=== PATIENT | female | born 1995 | race Caucasian/White ===

== ENCOUNTER 2016-04-17 22:38 | Inpatient (IN) | payer MEDICAID ==
[~2016-04-17] VITALS: Ht 165.1 cm; Wt 80.5 kg
[~2016-04-17 22:38] MED LIST: CIPR500T4 PO; DOCU100C37 PO; FERR-74 PO; Flexeril PO; IBUP-1780 PO; NITR-65 PO; OXYC-465 PO; PREN-37 PO; PREN1TAB71 PO
--- OUTSIDE RECORDS SUMMARY | 2016-04-17 22:42 | XMS REPORT | Continuity of Care Document ---
Author Author [facility] Organization [facility] Address Unknown Phone Unavailable Care Team Providers Care Tunnel Kiln Firer Name Role Phone JAIMEE ARIAS MD PCP Insurance Providers Payer Name Policy Number Subscriber Name Relationship Self Pay Milagro Lou 18 Self / Same As Patient Advance Directives Directive Response Recorded Date/Time Advance Directives No 10/18/14 3:55pm Health Care Power of Esthetics Instructor No 10/18/14 3:55pm Organ Donor Yes 10/18/14 3:55pm Resuscitation Status Full Code 10/18/14 3:55pm Problems No known problems or medical conditions. Medications Medication Dose Route Sig Days/Qty Instructions Order Date Discontinued Date Status Vit/Fe Fumarate/Fa 1 Each PO DAILY 0 Qty 10/18/14 Active Social History Social History Problem Response Recorded Date/Time Recent Foreign Travel No 10/18/2014 3:45pm Smoking Status Never a Smoker 10/18/2014 3:47pm Query Response Start Date Stop Date Smoking Status Never a Smoker Hospital Discharge Instructions No hospital discharge instructions. Plan of Care No plan of care. Functional Status No functional status results. Allergies, Adverse Reactions, Alerts Allergen Type Severity Reaction Status Last Updated penicillin Allergy Unknown Active 10/18/14 Immunizations No immunization records. Vital Signs Acute Vital Signs Vital Response Date/Time Pain Pain Intensity 3 Height (Feet) 5 feet Height (Inches) 5.00 inches Height (Calculated Centimeters) 165.359471 cm Weight (Pounds) 164 pounds Weight (Calculated Grams) 52487.149 gm Weight (Calculated Kilograms) 74.857031 kilograms Calculated BMI 27.29 Results Laboratory Results Test Name Result Units Flags Reference Collection Date/Time Result Date/ Time Comments Urine Color YELLOW 10/18/2014 3:15pm 10/18/2014 5:33pm Urine Clarity SLIGHTLY CLOUDY 10/18/2014 3:15pm 10/18/2014 5:33pm Urine pH 8 5-9 10/18/2014 3:15pm 10/18/2014 5:33pm Urine Specific [place] 1.015 * 1.016-1.022 10/18/2014 3:15pm 2014 5:33pm Urine Protein NEGATIVE NEGATIVE 10/18/2014 3:15pm 10/18/2014 5:33pm Urine Glucose (UA) NEGATIVE NEGATIVE 10/18/2014 3:15pm 10/18/2014 5: 33pm Urine RBC (Auto) NEGATIVE NEGATIVE 10/18/2014 3:15pm 10/18/2014 5: 33pm Urine Ketones NEGATIVE NEGATIVE 10/18/2014 3:15pm 10/18/2014 5:33pm Urine Nitrite NEGATIVE NEGATIVE 10/18/2014 3:15pm 10/18/2014 5:33pm Urine Bilirubin NEGATIVE NEGATIVE 10/18/2014 3:15pm 10/18/2014 5: 33pm Urine Urobilinogen NORMAL MG/DL NORMAL 10/18/2014 3:15pm 10/18/2014 5: 33pm Urine Leukocyte Esterase 1+ * NEGATIVE 10/18/2014 3:15pm 10/18/2014 5: 33pm Urine RBC NONE /HPF 10/18/2014 3:15pm 10/18/2014 5:33pm Urine WBC 2-5 /HPF 10/18/2014 3:15pm 10/18/2014 5:33pm Urine Bacteria MODERATE /HPF * 10/18/2014 3:15pm 10/18/2014 5:33pm Urine Squamous Epithelial Cells 10-25 /HPF * 10/18/2014 3:15pm 2014 5:33pm Urine Crystals NONE /LPF 10/18/2014 3:15pm 10/18/2014 5:33pm Urine Casts NONE /LPF 10/18/2014 3:15pm 10/18/2014 5:33pm Urine Mucus SMALL /LPF * 10/18/2014 3:15pm 10/18/2014 5:33pm Urine Culture Indicated NO 10/18/2014 3:15pm 10/18/2014 5:33pm A CULTURE WAS ALREADY ORDERED FOR THIS SPECIMEN Procedures No known history of procedures. Encounters Encounter Location Date/Time Departed Clinic Via [facility] 10/18/14 3:08pm Registered Clinic Via [facility] 10/10/14 10:11am
[2016-04-17 23:00] VITALS: BP 108/67
[2016-04-18] VITALS (10 sets, daily range): BP systolic 88–117; BP diastolic 50–70
[2016-04-18] MEDS ORDERED: D5 LR IV SOLUTION 1,000 ML IV ONE ×2 (06:16→11:00)
[2016-04-18] MEDS ORDERED: BUTORPHANOL INJ 2 MG/ML (STADOL) VIAL ONE (06:16)
[2016-04-18] MEDS: D5 LR IV SOLUTION 1,000 ML IV SCH ×2 (06:31→19:00)
[2016-04-18] MEDS ORDERED: BUTORPHANOL INJ 2 MG/ML (STADOL) VIAL IV ONE (06:45)
[2016-04-18] MEDS ORDERED: FLU TRIvalent (5 YOA+) 2016-17 (AFLURIA) 0.5 ML IM ONE (07:00)
[2016-04-18 07:38] LABS: BASOPHILS % (AUTO) 0 % (0-10); EOSINOPHILS % (AUTO) 0 % (0-10); LYMPHOCYTES % (AUTO) 21 % (12-44); MEAN CORPUSCULAR HEMOGLOBIN 27 PG (25-34); MEAN CORPUSCULAR HGB CONC 33 G/DL (32-36); MEAN CORPUSCULAR VOLUME 81 FL (80-99); MEAN PLATELET VOLUME 10.8 FL (7.4-10.4); MONOCYTES # (AUTO) 0.5 X 10^3 (0.0-1.0); MONOCYTES % (AUTO) 5 % (0-12); NEUTROPHILS # (AUTO) 7.3 X 10^3 (1.8-7.8); NEUTROPHILS % (AUTO) 74 % (42-75); PLATELET COUNT 226 10^3/uL (130-400); RED BLOOD COUNT 3.44 10^6/uL (4.35-5.85); RED CELL DISTRIBUTION WIDTH 14.3 % (10.0-14.5); WHITE BLOOD COUNT 9.9 10^3/uL (4.3-11.0)
--- NOTE | 2016-04-18 10:06 | Diagnostic Imaging Report ---
CLINICAL INDICATION: Patient with leaking fluid. COMPARISON: None TECHNIQUE: Real time ultrasound is performed FINDINGS: GESTATIONAL AGE: 37 weeks 6 days. TODD: 05/03/2016. Single live intrauterine is seen. PRESENTATION: Cephalic PLACENTA: Posterior with no evidence of previa. BIOPHYSICAL PROFILE SCORE: movement: 2/2 tone: 2/ 2 breathin/ 2 Amnionic fluid: 2/ 2 Total biophysical Profile score:6/ 8 HEART RATE: 114 bpm AMNIONIC FLUID INDEX: 15.87 cm IMPRESSION: Single live intrauterine with abnormal biophysical profile score of 6/8 due to breathing. The ION is 15.87 and heart rate of 114 beats per minute. The nurse taking care of the patient was made aware of this report and discussed with diagnostic radiologic technologist at time of this exam. Dictated by: Dictated on workstation # [id number]
[2016-04-18] MEDS ORDERED: LACTATED RINGERS 1,000 ML IV PRN (10:14)
[2016-04-18] MEDS ORDERED: CATHETER FLUSH 10 ML SYR IV PRN (10:15)
[2016-04-18] MEDS ORDERED: CITRIC ACID/SOB CIT (BICITRA) 30 ML UDC PO NR (10:15)
[2016-04-18] MEDS ORDERED: METOCLOPRAMIDE INJ 10 MG/2 ML (REGLAN) IV NR (10:15)
[2016-04-18] MEDS ORDERED: FAMOTIDINE 20MG/2ML IV (PEPCID) IV NR (10:15)
[2016-04-18] MEDS ORDERED: FAMOTIDINE 20MG/2ML IV (PEPCID) ONE (10:18)
[2016-04-18] MEDS ORDERED: CITRIC ACID/SOB CIT (BICITRA) 30 ML UDC ONE (10:18)
[2016-04-18] MEDS: LACTATED RINGERS 1,000 ML IV PRN ×2 (10:26→11:08)
[2016-04-18] MEDS ORDERED: metroNIDAZOLE 500MG/100ML IVPB 100 ML ONE (10:32)
[2016-04-18] MEDS ORDERED: fentaNYL INJECTION 100 MCG/2 ML AMP ONE (10:34)
[2016-04-18] MEDS ORDERED: OXYTOCIN/NORMAL SALINE 1,000 ML IV ONE (10:34)
[2016-04-18] MEDS ORDERED: ceFAZolin 2 GM/50 ML NS 50 ML IV NR (10:45)
[2016-04-18] MEDS ORDERED: metroNIDAZOLE 500MG/100ML IVPB 100 ML IV NR (10:45)
[2016-04-18] MEDS ORDERED: ceFAZolin INJECTION 2,000 MG in NORMAL SALINE (BAXTER MINI) 50 ML IV ONE (11:00)
[2016-04-18] MEDS ORDERED: TETANUS,DIPTH,PERTUSS P/F (BOOSTRIX) 0.5 ML VIAL IM ONE (11:00)
[2016-04-18] MEDS ORDERED: MEASLES,MUMPS,RUBELLA 1 EA INJ SC ONE (11:00)
[2016-04-18] MEDS ORDERED: PROMETHAZINE INJ 25 MG/ML (PHENERGAN) AMP IM PRN (11:00)
[2016-04-18] MEDS ORDERED: MEPERIDINE (DEMEROL) INJ 100 MG/ML IM PRN (11:00)
[2016-04-18] MEDS ORDERED: metroNIDAZOLE 500MG/100ML IVPB 100 ML IV ONE (11:00)
--- NOTE | 2016-04-18 11:09 | History & Physical ---
History and Physical this patient is a 19-year-old white female with a previous . She was admitted last evening with complaint of pain and pressure. She also felt like she was leaking amniotic fluid. Since presentation she had begun kristopher. That one episode of babies heart rate dropping down into the 90s for later 10 minutes. That resolved. Has had progressively increasing pain that she rates as 9 out of 10. Her contractions have persisted in spite of sedation and hydration. Clinically there is concern for placental abruption with her presentation. Her previous delivery was at 37 weeks as well. Plan now is to proceed with delivery. She did have a GBS culture done at 35 weeks gestation that was negative. She denies bleeding but still feels like she is leaking fluid. Physical profile was performed with a value of 6 out of 8 with no breathing movements. ION was 16 Allergies are to penicillin which causes a rash Indications are vitamins Past medical history, past surgical history, obstetric history, family history, social histories are per the antepartum record HEENT exam is normal Neck is supple no lymphadenopathy no thyromegaly Heart has a regular rhythm with no murmur Chest is clear auscultation bilaterally Abdomen is gravid soft and minimally tender. Extreme show clubbing cyanosis. There is no Homans sign. Pelvic exam is deferred Laboratory Tests Test 04/18/16 07:24 Range/Units Basophils # (Auto) 0.0 0.0-0.1 10^3/uL Basophils (%) (Auto) 0 0-10 % Eosinophils # (Auto) 0.0 0.0-0.3 10^3/uL Eosinophils (%) (Auto) 0 0-10 % Hematocrit 28 L 35-52 % Hemoglobin 9.2 L 11.5-16.0 G/DL Lymphocytes # (Auto) 2.0 1.0-4.0 X 10^3 Lymphocytes (%) (Auto) 21 12-44 % Mean Corpuscular Hemoglobin 27 25-34 PG Mean Corpuscular Hemoglobin Concent 33 32-36 G/DL Mean Corpuscular Volume 81 80-99 FL Mean Platelet Volume 10.8 H 7.4-10.4 FL Monocytes # (Auto) 0.5 0.0-1.0 X 10^3 Monocytes (%) (Auto) 5 0-12 % Neutrophils # (Auto) 7.3 1.8-7.8 X 10^3 Neutrophils (%) (Auto) 74 42-75 % Platelet Count 226 130-400 10^3/uL Red Blood Count 3.44 L 4.35-5.85 10^6/uL Red Cell Distribution Width 14.3 10.0-14.5 % White Blood Count 9.9 4.3-11.0 10^3/uL signs are stable patient is afebrile Vital Signs Date Time Temp Pulse Resp B/P Pulse Ox O2 Delivery O2 Flow Rate FiO2 04/18/16 07:15 97.4 62 18 99/57 Room Air 04/18/16 04:00 97.8 85 18 111/70 Room Air 04/17/16 23:00 98.7 85 18 108/67 Room Air assessment and plan 37 week plus gestation with possible placental abruption evidenced by fairly severe abdominal pelvic pain has progressed as her contractions have developed and progresses well. Patient may very well be leaking amniotic fluid although evaluation was negative. Patient had a previous where proceeding with a repeat with previous in early labor with suspicion for placental abruption Allergies and Home Medications Allergies Coded Allergies: penicillin (Unverified Allergy, Unknown, 10/18/14) Home Medications Nitrofurantoin Monohyd/M-Cryst 100 Mg Capsule 1 TAB PO DAILY (Reported) Vit/Iron Fumarate/FA 1 Each Tablet 1 EACH PO DAILY (Reported) YUNIEL CABRERA MD Apr 18, 2016 11:09 am
[2016-04-18] MEDS: OXYTOCIN/NORMAL SALINE 500 ML IV SCH ×3 (11:30→12:49)
[2016-04-18] MEDS ORDERED: ONDANSETRON 4 MG/2 ML (SDV) Z0FRAN ONE (11:47)
[2016-04-18] MEDS: KETOROLAC 30 MG/ML VIAL IVP SCH ×3 (12:45→23:58)
--- NOTE | 2016-04-18 12:59 | OPERATIVE REPORT ---
PROCEDURE PHYSICIAN: YUNIEL CABRERA DATE OF PROCEDURE: 04/18/2016 DATE OF DICTATION: 04/18/2016 PREOPERATIVE DIAGNOSIS: Term at 37+ weeks gestation with previous and with concern for placental abruption. POSTOPERATIVE DIAGNOSIS: Term at 37+ weeks gestation with previous and with concern for placental abruption, placental abruption and with uterine scar separation. OPERATIVE PROCEDURE: Repeat low transverse delivery of a viable female with Apgars of 9 and 9 at one and five minutes respectfully. Weight was 6 pounds 5 ounces. time was 1128. Arterial Cord blood pH was 7.33. OPERATIVE DESCRIPTION: With the patient in supine position, under satisfactory spinal anesthesia, she was prepped and draped usual fashion for abdominal surgery. Gale cath was placed in the urinary bladder. A repeat Pfannenstiel incision was made through the skin with scalpel by removing the patient's rather large previous Pfannenstiel incisional scar. The abdomen was then entered in the usual manner. Bladder retractor placed into position, clean scalpel used to make 4 cm hysterotomy incision. That was extended by blunt dissection as well. Andrews forceps were applied to facilitate delivery of a vigorous viable female infant. The infant had Apgars of 9 and 9 at one and five minutes respectfully. Weight was 6 pounds 5 ounces. time was 1128. The infant was bulb suctioned on delivery of the head and again on completion of delivery. The cord was doubly clamped and cut and the infant passed to nurse Campoverde, the pediatric nurse in attendance for delivery. The placenta delivered spontaneously quite promptly with fairly significant large clot retroplacental consistent with placental abruption. On opening the uterus it was noted that there was a 2 to 2.5 cm separation in the right margin of the uterine scar that had dehisced. There was evidence that this was new as there was blood was some fresh clot in that area as well. The cord bloods were obtained. Cord arterial pH was 7.33. The placenta again delivered spontaneously promptly. It was sent to pathology for permanent section. The uterus was exteriorized, interior wiped clean with a wet laparotomy sponge. Uterine incision then closed with running locked suture of 2-0 Vicryl. Good reapproximation was achieved and obliteration of the dehisced area was achieved as well. The uterus was returned to the abdominal cavity. All blood clot and debris removed from the abdominal cavity. With sponge and needle counts correct and hemostasis assured, the anterior parietal peritoneum was closed with running suture of 2-0 Vicryl. The rectus muscles were closed with that suture as well. The rectus fascia was closed with 2-0 Vicryl. Subcutaneous tissue with 2-0 Vicryl and skin was stapled. Sponge and needle counts were correct on completion of delivery. Estimated blood loss was around 600 mL. The patient tolerated the procedure well, and was transferred to recovery room in stable condition. The had been taken stable to the full term nursery under the care of nurse Campoverde. Job ID: [id number] Dictated Date: 04/18/2016 11:46:18 Photogrammetry Airplane Pilot Date: 04/18/2016 12:52:48 / coreen
[2016-04-18] MEDS: oxyCODONE/APAP 10/325MG (PERCOCET 10) TABLET PO PRN ×2 (16:36→21:14)
[2016-04-18] MEDS: DOCUSATE SODIUM 100 MG (COLACE) CAP PO SCH (21:14)
[2016-04-19] MEDS: D5 LR IV SOLUTION 1,000 ML IV SCH (00:17)
[2016-04-19 00:22] VITALS: BP 98/64
[2016-04-19 04:30] VITALS: BP 95/60
[2016-04-19] MEDS: KETOROLAC 30 MG/ML VIAL IVP SCH (06:10)
[2016-04-19] MEDS ORDERED: IBUPROFEN 800 MG (MOTRIN) TAB PO ONE (06:14)
[2016-04-19] MEDS: oxyCODONE/APAP 10/325MG (PERCOCET 10) TABLET PO PRN ×2 (06:18→20:12)
[2016-04-19] MEDS: IBUPROFEN 800 MG (MOTRIN) TAB PO SCH ×3 (06:19→18:30)
--- NOTE | 2016-04-19 08:04 | Progress Note-Standard ---
Standard Progress Note Progress Notes/Assess & Plan Progress/Assessment & Plan patient is without complaint. She is ambulating, voiding, tolerating by mouth well, has good pain control. Patient denies chest pain, denies shortness of breath, denies nausea vomiting, denies headache. Vital Signs Date Time Temp Pulse Resp B/P Pulse Ox O2 Delivery O2 Flow Rate FiO2 04/19/16 04:30 97.6 62 18 95/60 99 04/19/16 00:22 97.8 69 18 98/64 97 Room Air 04/18/16 20:00 97.2 68 18 117/63 99 Room Air 04/18/16 18:59 97 04/18/16 15:27 97.6 76 18 100/62 98 Room Air 04/18/16 10:55 97.3 63 18 88/51 Room Air 04/18/16 10:25 85 18 108/66 99 Room Air 04/18/16 09:55 66 18 89/50 97 Room Air 04/18/16 09:40 69 18 97/53 99 Room Air 04/18/16 09:30 67 18 97/53 Room Air 04/18/16 08:55 74 18 108/67 Room Air I & O 04/19/16 07:00 Intake Total 4672 ml Output Total 1750 ml Balance 2922 ml vital signs are stable. Patient afebrile. Abdomen is benign. Extreme show clubbing cyanosis. There is no Homans sign. Assessment and plan day number 1 status post repeat doing well. Plan is for routine convalescence care today and consider for discharge home tomorrow YUNIEL CABRERA MD Apr 19, 2016 8:04 am
[2016-04-19] MEDS ORDERED: DOCU100C37 PO (08:07)
[2016-04-19] MEDS ORDERED: OXYC-465 PO (08:07)
[2016-04-19] MEDS ORDERED: IBUP-1780 PO (08:07)
--- NOTE | 2016-04-19 08:09 | Discharge Instructions ---
Discharge Instructions Discharge Medications New, Converted or Re-Newed RX: RX on Chart Patient Instructions Patient Instructions: as directed Return to The Hospital For: as directed Activity & Diet Discharge Diet: No Restrictions Activity as Tolerated: No Orders-Post D/C & Referrals Follow Up Appt: RTC 1 week for incision check. Call to make follow up appt. for patient in 4 weeks. Wound Care: Remove shar, apply benzoin and steri strips. Activity Per routine post instructions. Diet as tolerated Patient may shower or tub bathe as desired. Continue home meds YUNIEL CABRERA MD Apr 19, 2016 8:09 am
[2016-04-19] MEDS: DOCUSATE SODIUM 100 MG (COLACE) CAP PO SCH ×2 (08:30→20:12)
[2016-04-19 09:51] VITALS: BP 96/67
[2016-04-19 12:00] VITALS: BP 100/63
--- NOTE | 2016-04-19 12:39 | Anesthesia-Regional Post-Op ---
Regional Patient Condition Mental Status: Alert, Oriented x3 Circulation: Same as Pre-Op Headache: Absent Sensation: Full Recovery Motor Block: Absent Post Op Complications Complications None Follow Up Care/Instructions Patient Instructions None needed. Anesthesia/Patient Condition Patient is doing well, no complaints, stable vital signs, no apparent adverse anesthesia problems. No complications reported per nursing. ARIK ALMONTE CRNA Apr 19, 2016 12:39
[2016-04-19 18:30] VITALS: BP 105/71
[2016-04-19 21:00] VITALS: BP 107/72
[2016-04-19] MEDS ORDERED: CHLORASEPTIC LOZENGE MM PRN (22:00)
[2016-04-20] MEDS: D5 LR IV SOLUTION 1,000 ML IV SCH ×2 (05:19→06:45)
[2016-04-20] MEDS: oxyCODONE/APAP 10/325MG (PERCOCET 10) TABLET PO PRN (06:57)
[2016-04-20] MEDS: IBUPROFEN 800 MG (MOTRIN) TAB PO SCH (06:57)
--- NOTE | 2016-04-20 07:34 | Progress Note-Standard ---
Standard Progress Note Progress Notes/Assess & Plan Progress/Assessment & Plan patient is without complaint. She is ambulating, voiding, tolerating by mouth well, has good pain control. Patient denies chest pain, denies shortness of breath, denies nausea vomiting, denies headache. Vital Signs Date Time Temp Pulse Resp B/P Pulse Ox O2 Delivery O2 Flow Rate FiO2 04/19/16 04:30 97.6 62 18 95/60 99 04/19/16 00:22 97.8 69 18 98/64 97 Room Air 04/18/16 20:00 97.2 68 18 117/63 99 Room Air 04/18/16 18:59 97 04/18/16 15:27 97.6 76 18 100/62 98 Room Air 04/18/16 10:55 97.3 63 18 88/51 Room Air 04/18/16 10:25 85 18 108/66 99 Room Air 04/18/16 09:55 66 18 89/50 97 Room Air 04/18/16 09:40 69 18 97/53 99 Room Air 04/18/16 09:30 67 18 97/53 Room Air 04/18/16 08:55 74 18 108/67 Room Air I & O 04/19/16 07:00 Intake Total 4672 ml Output Total 1750 ml Balance 2922 ml vital signs are stable. Patient afebrile. Abdomen is benign. Extreme show clubbing cyanosis. There is no Homans sign. Assessment and plan day number 1 status post repeat doing well. Plan is for routine convalescence care today and consider for discharge home tomorrow April 20, 2016 Patient is without complaint. She is ambulating, voiding, tolerating by mouth well, has good pain control, and is requesting discharge home Vital Signs Date Time Temp Pulse Resp B/P Pulse Ox O2 Delivery O2 Flow Rate FiO2 04/19/16 21:00 98.2 84 18 107/72 98 Room Air 04/19/16 18:30 97.4 66 18 105/71 100 Room Air 04/19/16 12:00 97.4 58 18 100/63 99 Room Air 04/19/16 09:51 98.4 82 18 96/67 99 I & O 04/20/16 07:00 Intake Total 3240 ml Output Total 3300 ml Balance -60 ml vital signs are stable. Patient afebrile. Abdomen is benign. Incision is clean dry and intact. Extremities show no clubbing cyanosis. There is no Homans sign. There is some pretibial pitting edema that is normal. Assessment and plan postoperative day number 2 status post repeat doing well. Plan is for discharge home with follow-up in clinic. Final Diagnosis 37 week repeat YUNIEL CABRERA MD Apr 20, 2016 7:33 am
[2016-04-20 08:30] VITALS: BP 96/64
[2016-04-20] MEDS: DOCUSATE SODIUM 100 MG (COLACE) CAP PO SCH (08:49)
[2016-04-20 11:05] VITALS: BP 96/64
--- OUTSIDE RECORDS SUMMARY | 2016-04-25 12:59 | XMS REPORT | Continuity of Care Document ---
Author Author [facility] Organization [facility] Address Unknown Phone Unavailable Care Team Providers Care Nail Specialist Name Role Phone JAIMEE ARIAS MD PCP Insurance Providers Payer Name Policy Number Subscriber Name Relationship Self Pay Milagro Lou 18 Self / Same As Patient Advance Directives Directive Response Recorded Date/Time Advance Directives No 10/18/14 3:55pm Health Care Power of Tab Machine Operator No 10/18/14 3:55pm Organ Donor Yes 10/18/14 [...] Height (Inches) 5.00 inches Height (Calculated Centimeters) 165.508223 cm Weight (Pounds) 164 pounds Weight (Calculated Grams) 65049.149 gm Weight (Calculated Kilograms) 74.918911 kilograms Calculated BMI 27.29 Results Laboratory Results Test Name Result Units Flags Reference Collection Date/Time Result Date/ Time Comments Urine Color YELLOW 10/18/2014 3:15pm 10/18/2014 5:33pm Urine Clarity SLIGHTLY CLOUDY 10/18/2014 3:15pm 10/18/2014 5:33pm Urine pH 8 5-9 10/18/2014 3:15pm 10/18/2014 5:33pm Urine Specific [place] 1.015 * 1.016-1.022 10/18/2014 3:15pm 2014 5:33pm [...] Encounters Encounter Location Date/Time Departed Clinic Via [facility] 10/18/14 3:08pm Registered Clinic Via [facility] 10/10/14 10:11am
== END 2016-04-20 11:25 | disposition home or self-care (01) | DRG 766 ==
LOC: LDRP 22:38 → WSo 22:38 → LDRP 04-18 → WSo 04-18 → UNDOADMOB 04-18 04:45 → LDRP 04-18 04:45 → OBSVTOIN 04-18 10:31 → INTOOBSV 04-18 10:31 → LDRP 04-18 14:02 → UNDODISIN 04-20 11:25 → EDSTATUS 04-25 12:54
PROVIDERS: ADMIT Obstetrics & Gynecology; ATTEND Obstetrics & Gynecology
PROC: 10D00Z1 Extraction of Products of Conception, Low, Open Approach (ICD-10-PCS; principal; 2016-04-18 11:08)
DX: O34.211 Maternal care for low transverse scar from previous cesarean delivery (principal); Z3A.37 37 weeks gestation of pregnancy; Z37.0 Single live birth
CPT/HCPCS: 36415; 76819; 85025; 86850; 86900; 86901; 87081; 88307; 94664; 99212

== ENCOUNTER 2016-05-17 09:56 | Emergency (ER) | payer MEDICAID ==
[~2016-05-17] VITALS: Ht 165.1 cm; Wt 74.6 kg
--- OUTSIDE RECORDS SUMMARY | 2016-05-17 10:03 | XMS REPORT | Continuity of Care Document ---
Author Author [facility] Organization [facility] Address Unknown Phone Unavailable Care Team Providers Care Checker In Name Role Phone JAIMEE ARIAS MD PCP Insurance Providers Payer Name Policy Number Subscriber Name Relationship Self Pay Milagro Lou 18 Self / Same As Patient Advance Directives Directive Response Recorded Date/Time Advance Directives No 10/18/14 3:55pm Health Care Power of Auto Machinist No 10/18/14 3:55pm Organ Donor Yes 10/18/14 [...] Height (Inches) 5.00 inches Height (Calculated Centimeters) 165.026723 cm Weight (Pounds) 164 pounds Weight (Calculated Grams) 16131.149 gm Weight (Calculated Kilograms) 74.639961 kilograms Calculated BMI 27.29 Results Laboratory Results Test Name Result Units Flags Reference Collection Date/Time Result Date/ Time Comments Urine Color YELLOW 10/18/2014 3:15pm 10/18/2014 5:33pm Urine Clarity SLIGHTLY CLOUDY 10/18/2014 3:15pm 10/18/2014 5:33pm Urine pH 8 5-9 10/18/2014 3:15pm 10/18/2014 5:33pm Urine Specific [place] 1.015 * 1.016-1.022 10/18/2014 3:15pm 2014 5:33pm [...] Encounters Encounter Location Date/Time Departed Clinic Via [facility] 10/18/14 3:08pm Registered Clinic Via [facility] 10/10/14 10:11am
--- NOTE | 2016-05-17 10:42 | ED General ---
General Chief Complaint: General Problems/Pain Stated Complaint: FLU/UTI SYMPTOMS SYNCOPAL EPISODE Source of Information: Patient Exam Limitations: No Limitations History of Present Illness Time Seen by Provider: 10:41 Initial Comments To ER with reports of sudden onset UTI symptoms. This began yesterday with frequent urination, low back pain. She also has a headache and nausea. She reports that she nearly passed out this morning while making a bottle for her infant she felt lightheaded so she went towards the couch and fell down on the couch. She denies any chest pain, shortness of breath or palpitations. Timing/Duration: 12-24 Hours Severity: Moderate Associated Systoms: No Chest Pain, No Cough, No Fever/Chills, Headaches Nausea /Vomiting Allergies and Home Medications Allergies Coded Allergies: penicillin (Unverified Allergy, Unknown, 10/18/14) Home Medications Docusate Sodium 100 Mg Capsule #60 100 MG PO BID Prescribed by: YUNIEL MICHEL on 04/19/16 0807 Ibuprofen 800 Mg Tablet #60 800 MG PO Q6H Prescribed by: YUNIEL MICHEL on 04/19/16 0807 Nitrofurantoin Monohyd/M-Cryst 100 Mg Capsule 1 TAB PO DAILY (Reported) Ondansetron 8 Mg Tab.rapdis #10 8 MG PO Q6H PRN PRN NAUSEA/VOMITING Prescribed by: SE ZURITA on 05/17/16 1103 Oxycodone HCl/Acetaminophen 1 Each Tablet #60 1-2 TAB PO Q4H PRN PRN PAIN Prescribed by: YUNIEL MICHEL on 04/19/16 0807 Vit/Iron Fumarate/FA 1 Each Tablet 1 EACH PO DAILY (Reported) Sulfamethoxazole/Trimethoprim 1 Each Tablet #10 1 EACH PO BID Prescribed by: SE ZURITA on 05/17/16 1103 Constitutional: see HPI EENTM: see HPI Respiratory: no symptoms reported Cardiovascular: no symptoms reported Genitourinary: see HPI dysuria frequency Musculoskeletal: see HPI back pain Skin: no symptoms reported Psychiatric/Neurological: No Symptoms Reported Hematologic/Lymphatic: No Symptoms Reported Immunological/Allergic: no symptoms reported Past Axracgu-Tbfeaa-Mbbsuu Hx Patient Social History Alcohol Use: Denies Use Recreational Drug Use: No Smoking Status: Never a Smoker 2nd Hand Smoke Exposure: No Recent Foreign Travel: No Contact w/Someone Who Travel: No Recent Hopitalizations: Yes (CHILDBIRTH) Immunizations Up To Date Tetanus Booster (TDap): Unknown PED Vaccines UTD: Yes Seasonal Allergies Seasonal Allergies: Yes Surgeries HX Surgeries: Yes Surgeries: Section, Tubal Ligation Respiratory Hx Respiratory Disorders: No Cardiovascular Hx Cardiac Disorders: Yes Neurological Hx Neurological Disorders: No Reproductive System Hx Reproductive Disorders: No Genitourinary Hx Genitourinary Disorders: Yes (UROSEPSIS) Genitourinary Disorders: Kidney Infection, Bladder Infection, UTI-Chronic Gastrointestinal Hx Gastrointestinal Disorders: No Musculoskeletal Hx Musculoskeletal Disorders: No Endocrine Hx Endocrine Disorders: No HEENT HX ENT Disorders: No Cancer Hx Cancer: No Psychosocial Hx Psychiatric Problems: No Integumentary HX Skin/Integumentary Disorder: No Blood Transfusions Hx Blood Disorders: No Adverse Reaction to a Blood Tr: No Family Medical History Family Medial History: FH: blindness 19 MOTHER Hypertension 19 FATHER G8 SISTER Physical Exam Vital Signs Vital Sign - Last 12Hours 05/17/16 10:22 Temp 98.6 Pulse 92 Resp 18 B/P 127/72 Pulse Ox 98 O2 Delivery Room Air Capillary Refill : General Appearance: No Apparent Distress WD/WN Eyes: Bilateral Eye EOMI, Bilateral Eye Normal Inspection, Bilateral Eye PERRL HEENT: PERRL/EOMI TMs Normal Neck: Full Range of Motion Normal Inspection Respiratory: No Accessory Muscle Use No Respiratory Distress Cardiovascular: Regular Rate, Rhythm Normal Peripheral Pulses Gastrointestinal: Normal Bowel Sounds Non Tender Soft Extremity: Normal Capillary Refill Neurologic/Psychiatric: Alert Oriented x3 No Motor/Sensory Deficits Skin: Normal Color Warm/Dry Progress/Results/Core Measures Results/Orders Lab Results Laboratory Tests Test 05/17/16 10:42 05/17/16 10:46 Range/Units Urine Bacteria TRACE /HPF Urine Bilirubin NEGATIVE NEGATIVE Urine Casts NONE /LPF Urine Clarity SLIGHTLY CLOUDY Urine Color YELLOW Urine Crystals NONE /LPF Urine Culture Indicated NO Urine Glucose (UA) NEGATIVE NEGATIVE Urine Ketones NEGATIVE NEGATIVE Urine Leukocyte Esterase 2+ H NEGATIVE Urine Mucus LARGE H /LPF Urine Nitrite NEGATIVE NEGATIVE Urine Protein 1+ H NEGATIVE Urine RBC NONE /HPF Urine RBC (Auto) NEGATIVE NEGATIVE Urine Specific [place] 1.015 L 1.016-1.022 Urine Squamous Epithelial Cells >50 H /HPF Urine Urobilinogen 1 NORMAL MG/DL Urine WBC 5-10 H /HPF Urine pH 6 5-9 Alanine Aminotransferase (ALT/SGPT) 8 0-55 U/L Albumin 4.2 3.2-4.5 G/DL Alkaline Phosphatase 82 40-136 U/L Anion Gap 11 5-14 MMOL/L Aspartate Amino Transf (AST/SGOT) 10 5-34 U/L BUN/Creatinine Ratio 10 Basophils # (Auto) 0.0 0.0-0.1 10^3/uL Basophils (%) (Auto) 0 0-10 % Blood Urea Nitrogen 10 7-18 MG/DL Calcium Level 8.7 8.5-10.1 MG/DL Carbon Dioxide Level 22 21-32 MMOL/L Chloride Level 104 98-107 MMOL/L Creatinine 1.01 0.60-1.30 MG/DL Eosinophils # (Auto) 0.0 0.0-0.3 10^3/uL Eosinophils (%) (Auto) 0 0-10 % Estimat Glomerular Filtration Rate > 60 Glucose Level 98 70-105 MG/DL Hematocrit 35 35-52 % Hemoglobin 11.2 L 11.5-16.0 G/DL Lymphocytes # (Auto) 1.1 1.0-4.0 X 10^3 Lymphocytes (%) (Auto) 11 L 12-44 % Mean Corpuscular Hemoglobin 26 25-34 PG Mean Corpuscular Hemoglobin Concent 32 32-36 G/DL Mean Corpuscular Volume 81 80-99 FL Mean Platelet Volume 11.3 H 7.4-10.4 FL Monocytes # (Auto) 0.7 0.0-1.0 X 10^3 Monocytes (%) (Auto) 7 0-12 % Neutrophils # (Auto) 8.1 H 1.8-7.8 X 10^3 Neutrophils (%) (Auto) 82 H 42-75 % Platelet Count 237 130-400 10^3/uL Potassium Level 3.6 3.6-5.0 MMOL/L Red Blood Count 4.30 L 4.35-5.85 10^6/uL Red Cell Distribution Width 16.3 H 10.0-14.5 % Sodium Level 137 135-145 MMOL/L Total Bilirubin 0.6 0.1-1.0 MG/DL Total Protein 7.2 6.4-8.2 G/DL White Blood Count 9.8 4.3-11.0 10^3/uL My Orders Orders-SE ZURITA TITLE SEARCHER Cbc With Automated Diff (05/17/16 10:40) Comprehensive Metabolic Panel (05/17/16 10:40) Ua Culture If Indicated (05/17/16 10:40) Urine Bedside (05/17/16 10:40) Ketorolac Injection (Toradol Injection) (05/17/16 11:00) Saline Lock/Iv-Start (05/17/16 10:46) Urine Culture (05/17/16 11:13) Medications Given in ED Current Medications Medications Dose Ordered Sig/Karolyn Route Start Time Stop Time Status Last Admin Dose Admin Ketorolac Tromethamine 30 mg ONCE ONCE IVP 05/17/16 11:00 05/17/16 11:01 DC 05/17/16 10:56 30 MG Vital Signs/I&O Vital Sign - Last 12Hours 05/17/16 11:43 Temp 98.6 Pulse 90 Resp 18 Pulse Ox 98 Departure Impression Impression: Primary Impression: Urinary tract infection Disposition: HOME, SELF-CARE Condition: Stable Departure-Patient Inst. Decision time for Depature: 11:02 Referrals: NO,LOCAL PHYSICIAN (PCP/Family) Primary Care Physician Patient Instructions: Urinary Tract Infection, Adult (DC) Add. Discharge Instructions: 1. Return to ER for any worsening 2. Antibiotics as directed. 3. Follow-up with your doctor next week All discharge instructions reviewed with patient and/or family. Voiced understanding. Scripts Sulfamethoxazole/Trimethoprim (Bactrim Ds Tablet)1 Each Tablet1 Each PO BID #10 TAB Prov:SE ZURITA TITLE SEARCHER 05/17/16 Ondansetron (Zofran Odt)8 Mg Tab.rapdis8 Mg PO Q6H PRN NAUSEA/VOMITING #10 TAB Prov:SE ZURITA TITLE SEARCHER 05/17/16 SE ZURITA TITLE SEARCHER May 17, 2016 10:42
[2016-05-17 10:47] LABS: BILIRUBIN,URINE NEGATIVE (NEGATIVE); KETONES,URINE NEGATIVE (NEGATIVE); LEUKOCYTE ESTERASE ,URINE 2+ (NEGATIVE); NITRITE,URINE NEGATIVE (NEGATIVE); PH,URINE 6 (5-9); PROTEIN,URINE 1+ (NEGATIVE); UROBILINOGEN,URINE 1 MG/DL (NORMAL)
[2016-05-17 10:58] LABS: BASOPHILS % (AUTO) 0 % (0-10); EOSINOPHILS % (AUTO) 0 % (0-10); LYMPHOCYTES # (AUTO) 1.1 X 10^3 (1.0-4.0); LYMPHOCYTES % (AUTO) 11 % (12-44); MEAN CORPUSCULAR HEMOGLOBIN 26 PG (25-34); MEAN CORPUSCULAR HGB CONC 32 G/DL (32-36); MEAN CORPUSCULAR VOLUME 81 FL (80-99); MEAN PLATELET VOLUME 11.3 FL (7.4-10.4); MONOCYTES # (AUTO) 0.7 X 10^3 (0.0-1.0); MONOCYTES % (AUTO) 7 % (0-12); NEUTROPHILS # (AUTO) 8.1 X 10^3 (1.8-7.8); NEUTROPHILS % (AUTO) 82 % (42-75); PLATELET COUNT 237 10^3/uL (130-400); RED CELL DISTRIBUTION WIDTH 16.3 % (10.0-14.5); WHITE BLOOD COUNT 9.8 10^3/uL (4.3-11.0)
[2016-05-17 10:59] LABS: SQUAMOUS EPITHELIAL CELL,UR >50 /HPF
[2016-05-17] MEDS ORDERED: KETOROLAC 30 MG/ML VIAL IVP ONE (11:00)
[2016-05-17] MEDS ORDERED: SULF1TAB35 PO (11:03)
[2016-05-17] MEDS ORDERED: ONDA8TAB9 PO (11:03)
[2016-05-17 11:26] LABS: ALANINE AMINOTRANSFERASE 8 U/L (0-55); ALBUMIN 4.2 G/DL (3.2-4.5); ANION GAP 11 MMOL/L (5-14); ASPARTATE AMINO TRANSFERASE 10 U/L (5-34); BILIRUBIN,TOTAL 0.6 MG/DL (0.1-1.0); BLOOD UREA NITROGEN 10 MG/DL (7-18); BUN/CREATININE RATIO 10; CALCIUM 8.7 MG/DL (8.5-10.1); CARBON DIOXIDE 22 MMOL/L (21-32); CHLORIDE 104 MMOL/L (98-107); CREATININE SERUM 1.01 MG/DL (0.60-1.30); GFR ESTIMATED > 60; GLUCOSE 98 MG/DL (70-105); POTASSIUM 3.6 MMOL/L (3.6-5.0); SODIUM 137 MMOL/L (135-145); TOTAL PROTEIN 7.2 G/DL (6.4-8.2)
[2016-05-17 11:43] VITALS: BP 125/74
== END 2016-05-17 11:45 | disposition home or self-care (01) ==
LOC: EDUNIT# 09:56 → ER 09:59
DX: N39.0 Urinary tract infection, site not specified (principal); R55 Syncope and collapse
CPT/HCPCS: 36415; 80053; 81000; 84703; 85025; 87077; 87088; 87186; 96374

== ENCOUNTER 2016-06-02 21:43 | Emergency (ER) | payer MEDICAID ==
[~2016-06-02] VITALS: Ht 165.1 cm; Wt 73.9 kg
[~2016-06-02 21:43] MED LIST changes: +ONDA8TAB9 PO; +SULF1TAB35 PO
--- OUTSIDE RECORDS SUMMARY | 2016-06-02 21:48 | XMS REPORT | Continuity of Care Document ---
Author Author [facility] Organization [facility] Address Unknown Phone Unavailable Care Team Providers Care Child Care Lead Teacher Name Role Phone JAIMEE ARIAS MD PCP Insurance Providers Payer Name Policy Number Subscriber Name Relationship Self Pay Milagro Luo 18 Self / Same As Patient Advance Directives Directive Response Recorded Date/Time Advance Directives No 10/18/14 3:55pm Health Care Power of Supervisor Word Processing No 10/18/14 3:55pm Organ Donor Yes 10/18/14 [...] Height (Inches) 5.00 inches Height (Calculated Centimeters) 165.024617 cm Weight (Pounds) 164 pounds Weight (Calculated Grams) 69803.149 gm Weight (Calculated Kilograms) 74.238614 kilograms Calculated BMI 27.29 Results Laboratory Results Test Name Result Units Flags Reference Collection Date/Time Result Date/ Time Comments Urine Color YELLOW 10/18/2014 3:15pm 10/18/2014 5:33pm Urine Clarity SLIGHTLY CLOUDY 10/18/2014 3:15pm 10/18/2014 5:33pm Urine pH 8 5-9 10/18/2014 3:15pm 10/18/2014 5:33pm Urine Specific [place] 1.015 * 1.016-1.022 10/18/2014 3:15pm 2014 5:33pm [...] Encounters Encounter Location Date/Time Departed Clinic Via [facility] 10/18/14 3:08pm Registered Clinic [facility] 10/10/14 10:11am
[2016-06-02] MEDS ORDERED: DOXYCYCLINE 100 MG (VIBRAMYCIN) TABLET PO STA (23:04)
[2016-06-02] MEDS ORDERED: RX-MUPIROCIN (BACTROBAN) 2% OINT 22 GM TUBE TOP STA (23:04)
--- NOTE | 2016-06-02 23:18 | ED Integumentary General ---
General Chief Complaint: Skin/Wound Problems Stated Complaint: BUG BITE ON ELBOW Nursing Triage Note: PT REPORTS POSS ABSCESS TO LT ELBOW ONSET YESTERDAY, WORSE TODAY. Source: patient Exam Limitations: no limitations History of Present Illness Time seen by provider: 22:55 Initial Comments Here with report of possible abscess to the left forearm on the volar surface. Noted yesterday and worse today. There is a central blister with surrounding induration and erythema. No other wounds or concerns. Also has question about a culture result from her urine a few weeks ago. Timing/Duration: yesterday Severity: mild Location: extremities Possible Cause: no cause identified Associated Symptoms: blisters change in skin texture edemaNo fever, No rash Allergies and Home Medications Allergies Coded Allergies: penicillin (Unverified Allergy, Unknown, 10/18/14) Constitutional: see HPINo chills, No fever Respiratory: no symptoms reported Cardiovascular: no symptoms reported Genitourinary: No discharge, No frequency, No pain Musculoskeletal: no symptoms reported Skin: see HPI change in color lesions Past Nqkhjrc-Fqjlji-Rbrpyj Hx Patient Social History Alcohol Use: Denies Use Recreational Drug Use: No Smoking Status: Never a Smoker 2nd Hand Smoke Exposure: No Recent Foreign Travel: No Contact w/Someone Who Travel: No Recent Infectious Disease Expo: No Recent Hopitalizations: No Immunizations Up To Date Tetanus Booster (TDap): Unknown PED Vaccines UTD: Yes Seasonal Allergies Seasonal Allergies: Yes Surgeries HX Surgeries: Yes Surgeries: Section, Tubal Ligation Respiratory Hx Respiratory Disorders: No Cardiovascular Hx Cardiac Disorders: Yes Neurological Hx Neurological Disorders: No Reproductive System Hx Reproductive Disorders: No Genitourinary Hx Genitourinary Disorders: Yes (UROSEPSIS) Genitourinary Disorders: Kidney Infection, Bladder Infection, UTI-Chronic Gastrointestinal Hx Gastrointestinal Disorders: No Musculoskeletal Hx Musculoskeletal Disorders: No Endocrine Hx Endocrine Disorders: No HEENT HX ENT Disorders: No Cancer Hx Cancer: No Psychosocial Hx Psychiatric Problems: No Integumentary HX Skin/Integumentary Disorder: No Blood Transfusions Hx Blood Disorders: No Adverse Reaction to a Blood Tr: No Reviewed Nursing Assessment Reviewed/Agree w Nursing PMH: Yes Family Medical History Family Medial History: FH: blindness 19 MOTHER Hypertension 19 FATHER G8 SISTER Physical Exam Vital Signs Vital Sign - Last 12Hours 06/02/16 21:49 Temp 97.4 Pulse 78 Resp 20 B/P 111/79 Pulse Ox 99 O2 Delivery Room Air Capillary Refill : Less Than 3 Seconds General Appearance: WD/WN no apparent distress Cardiovascular: regular rate, rhythm no murmur Respiratory: lungs clear normal breath sounds Gastrointestinal: non tender soft Back: normal inspection no CVA tenderness no vertebral tenderness Neurologic/Psychiatric: alert oriented x 3 Skin Problem Location: upper extremities (left forearm) Skin Problem Character: erythema, swelling, tenderness, vesicular, other ( central puncture surrounded by 0.5 cm blister surrounded by 2 x 2 centimeter area of induration surrounded by 6 x 6 cm area of erythema. No obvious fluctuant area.) Progress/Results/Core Measures Results/Orders My Orders Orders-JESUS BARBER MD Rx-Mupirocin 2% Oint (Rx-Bactroban) (06/02/16 23:04) Doxycycline Hyclate Tablet (Vibramycin T (06/02/16 23:04) Vital Signs/I&O Vital Sign - Last 12Hours 06/02/16 21:49 Temp 97.4 Pulse 78 Resp 20 B/P 111/79 Pulse Ox 99 O2 Delivery Room Air Blood Pressure Mean: 90 Progress Note : Progress Note Seen and evaluated. I did review the previous UA which showed Enterococcus faecalis that was not covered by her prescribed antibiotic. She has not taken a new antibiotic. We will initiate that outpatient as well as initiate doxycycline and mupirocin. Discharged home with return precautions. Patient verbalize understanding instructions and agreement with plan. Departure Impression Impression: Primary Impression: Spider bite Qualified Code: T63.304A - Toxic effect of unspecified spider venom, undetermined, initial encounter Additional Impression: Urinary tract infection Qualified Code: N30.00 - Acute cystitis without hematuria Disposition: HOME, SELF-CARE Condition: Improved Departure-Patient Inst. Decision time for Depature: 23:19 Referrals: NO,LOCAL PHYSICIAN (PCP/Family) Primary Care Physician Patient Instructions: Spider Bites, Urinary Tract Infections in Adults Add. Discharge Instructions: All discharge instructions reviewed with patient and/or family. Voiced understanding. Take medications as directed. Follow-up with your DrWard in 2-3 days for recheck. Return for worse pain, swelling, fevers, increasing redness or other concerns as needed. You may take ibuprofen 600 mg every 8 hours as needed for pain. You may take Tylenol 1000 mg every 8 hours as needed for pain. Drink plenty of fluids. Scripts Doxycycline Hyclate 100 Mg [id number] Mg PO BID #20 TAB Prov:JESUS BARBER MD 06/02/16 Ciprofloxacin HCl 500 Mg [id number] Mg PO BID #6 TAB Prov:JESUS BARBER MD 06/02/16 JESUS BARBER MD Jun 02, 2016 23:18
[2016-06-02] MEDS ORDERED: DOXY100T2 PO (23:21)
[2016-06-02] MEDS ORDERED: CIPR500T4 PO (23:21)
[2016-06-02 23:26] VITALS: BP 0/0
== END 2016-06-02 23:26 | disposition home or self-care (01) ==
LOC: EDUNIT# 21:43 → ER 21:45
DX: T63.391A Toxic effect of venom of other spider, accidental (unintentional), initial encounter (principal); N39.0 Urinary tract infection, site not specified; B96.89 Other specified bacterial agents as the cause of diseases classified elsewhere
CPT/HCPCS: 99281

== ENCOUNTER 2016-08-24 12:12 | Inpatient (IN) | payer MEDICAID ==
[~2016-08-24] VITALS: Ht 165.1 cm; Wt 75.7 kg
[~2016-08-24 12:12] MED LIST changes: +DOXY100T2 PO
[2016-08-24] MEDS ORDERED: NS IV 1000 ML 1,000 ML IV ONE ×3 (12:21→14:18)
[2016-08-24] MEDS ORDERED: ONDANSETRON 4 MG/2 ML (SDV) Z0FRAN IVP ONE (12:30)
--- NOTE | 2016-08-24 12:31 | ED General ---
General Chief Complaint: -Female Stated Complaint: NAUSEA,VOMITING Nursing Triage Note: ARRIVED VIA POV FROM HOME WITH COMPLAINTS LOWER ABD PAIN, LOW BACK PAIN, AND FEVER. PT STATES SHE TOOK IBUPROFEN ON HER WAY TO THE HOSPITAL. Nursing Sepsis Screen: Possible Sepsis Risk Source of Information: Patient Exam Limitations: No Limitations History of Present Illness Time Seen by Provider: 12:14 Initial Comments This 20-year-old young lady presents to the emergency room with complaints of fever up to 103, lower back pain, nausea and vomiting, and urinary frequency. She denies any diarrhea. She has mild diffuse abdominal pain on exam. Last menstrual period started yesterday. Patient has a history of severe UTI with sepsis. Allergies and Home Medications Allergies Coded Allergies: penicillin (Unverified Allergy, Unknown, 10/18/14) Constitutional: see HPI EENTM: no symptoms reported Respiratory: no symptoms reported Cardiovascular: no symptoms reported Gastrointestinal: see HPI Genitourinary: see HPI : No Musculoskeletal: see HPI Skin: no symptoms reported Psychiatric/Neurological: No Symptoms Reported Hematologic/Lymphatic: No Symptoms Reported Past Agialrj-Laphnq-Lhffqy Hx Patient Social History Alcohol Use: Denies Use Recreational Drug Use: No Smoking Status: Never a Smoker 2nd Hand Smoke Exposure: No Recent Foreign Travel: No Contact w/Someone Who Travel: No Recent Infectious Disease Expo: No Recent Hopitalizations: No Immunizations Up To Date Tetanus Booster (TDap): Unknown PED Vaccines UTD: Yes Seasonal Allergies Seasonal Allergies: Yes Surgeries HX Surgeries: Yes Surgeries: Section, Tubal Ligation Respiratory Hx Respiratory Disorders: No Cardiovascular Hx Cardiac Disorders: Yes Neurological Hx Neurological Disorders: No Reproductive System Hx Reproductive Disorders: No Genitourinary Hx Genitourinary Disorders: Yes (UROSEPSIS) Genitourinary Disorders: Kidney Infection, Bladder Infection, UTI-Chronic Gastrointestinal Hx Gastrointestinal Disorders: No Musculoskeletal Hx Musculoskeletal Disorders: No Endocrine Hx Endocrine Disorders: No HEENT HX ENT Disorders: No Cancer Hx Cancer: No Psychosocial Hx Psychiatric Problems: No Integumentary HX Skin/Integumentary Disorder: No Blood Transfusions Hx Blood Disorders: No Adverse Reaction to a Blood Tr: No Family Medical History Significant Family History: No Pertinent Family Hx Family Medial History: FH: blindness 19 MOTHER Hypertension 19 FATHER G8 SISTER Physical Exam-Suspected Sepsis Physical Exam Vital Signs Vital Sign - Last 12Hours 08/24/16 12:15 Temp 102.8 Pulse 105 Resp 16 B/P (MAP) 106/73 Pulse Ox 98 O2 Delivery Room Air Capillary Refill : Less Than 3 Seconds Blood Pressure Mean: 84 General Appearance: WD/WN, Mild Distress, Other (ill appearing) HEENT: PERRL/EOMI, Normal ENT Inspection, Other (oropharynx somewhat dry) Neck: Normal Inspection Respiratory: Lungs Clear, Normal Breath Sounds, No Accessory Muscle Use, No Respiratory Distress Cardiovascular: No Edema, No Murmur, Tachycardia Gastrointestinal: Normal Bowel Sounds, Soft, Tenderness (mild, diffuse) Back: CVA Tenderness (L), CVA Tenderness (R) Extremity: Normal Capillary Refill, Normal Inspection, No Pedal Edema Neurologic/Psychiatric: Alert, Oriented x3, No Motor/Sensory Deficits, Normal Mood/Affect, resistor inspector II-XII Norm as Tested Skin: normal color, warm/dry Focused Exam Evaluation Sepsis Stage: Sepsis Possible Source: Genitouriary Time of Focused Exam: 13:43 Respiratory: Lungs Clear, Normal Breath Sounds, No Accessory Muscle Use, No Respiratory Distress Cardiovascular: Regular Rate, Rhythm, No Edema, No Murmur Capillary Refill: Less Than 3 Seconds Skin: normal color, warm/dry Lactic Acid Level Laboratory Tests Test 08/24/16 12:30 Lactic Acid Level 0.85 MMOL/L (0.50-2.00) Progress/Results/Core Measures Suspected Sepsis Recent Fever Within 48 Hours: Yes Infection Criteria Present: Suspected New Infection New/Unexplained Altered Menta: No Sepsis Screen: Possible Sepsis Risk Sepsis Diagnosis: SIRS Temperature:102.8 Pulse: 105 Respiratory Rate: 16 Laboratory Tests 08/24/16 12:30: White Blood Count 10.0 Blood Pressure 106 /73 Mean: 84 Laboratory Tests 08/24/16 12:30: Creatinine 0.92, Platelet Count 223, Total Bilirubin 0.7 Results/Orders Lab Results Laboratory Tests Test 08/24/16 12:30 08/24/16 12:50 Range/Units White Blood Count 10.0 4.3-11.0 10^3/uL Red Blood Count 4.07 L 4.35-5.85 10^6/uL Hemoglobin 10.4 L 11.5-16.0 G/DL Hematocrit 33 L 35-52 % Mean Corpuscular Volume 80 80-99 FL Mean Corpuscular Hemoglobin 26 25-34 PG Mean Corpuscular Hemoglobin Concent 32 32-36 G/DL Red Cell Distribution Width 15.8 H 10.0-14.5 % Platelet Count 223 130-400 10^3/uL Mean Platelet Volume 11.2 H 7.4-10.4 FL Neutrophils (%) (Auto) 85 H 42-75 % Lymphocytes (%) (Auto) 7 L 12-44 % Monocytes (%) (Auto) 7 0-12 % Eosinophils (%) (Auto) 0 0-10 % Basophils (%) (Auto) 0 0-10 % Neutrophils # (Auto) 8.5 H 1.8-7.8 X 10^3 Lymphocytes # (Auto) 0.7 L 1.0-4.0 X 10^3 Monocytes # (Auto) 0.7 0.0-1.0 X 10^3 Eosinophils # (Auto) 0.0 0.0-0.3 10^3/uL Basophils # (Auto) 0.0 0.0-0.1 10^3/uL Neutrophils % (Manual) 91 % Lymphocytes % (Manual) 5 % Monocytes % (Manual) 2 % Eosinophils % (Manual) 0 % Basophils % (Manual) 0 % Band Neutrophils 2 % Anisocytosis SLIGHT Microcytosis SLIGHT Elliptocytes SLIGHT Sodium Level 138 135-145 MMOL/L Potassium Level 3.9 3.6-5.0 MMOL/L Chloride Level 106 98-107 MMOL/L Carbon Dioxide Level 25 21-32 MMOL/L Anion Gap 7 5-14 MMOL/L Blood Urea Nitrogen 11 7-18 MG/DL Creatinine 0.92 0.60-1.30 MG/DL Estimat Glomerular Filtration Rate > 60 BUN/Creatinine Ratio 12 Glucose Level 96 70-105 MG/DL Lactic Acid Level 0.85 0.50-2.00 MMOL/L Calcium Level 8.4 L 8.5-10.1 MG/DL Total Bilirubin 0.7 0.1-1.0 MG/DL Aspartate Amino Transf (AST/SGOT) 10 5-34 U/L Alanine Aminotransferase (ALT/SGPT) 10 0-55 U/L Alkaline Phosphatase 68 40-136 U/L Total Protein 7.2 6.4-8.2 G/DL Albumin 4.1 3.2-4.5 G/DL Serum Test, Qualitative NEGATIVE NEGATIVE Urine Color YELLOW Urine Clarity CLEAR Urine pH 6 5-9 Urine Specific [place] 1.015 L 1.016-1.022 Urine Protein 2+ H NEGATIVE Urine Glucose (UA) NEGATIVE NEGATIVE Urine Ketones NEGATIVE NEGATIVE Urine Nitrite POSITIVE H NEGATIVE Urine Bilirubin NEGATIVE NEGATIVE Urine Urobilinogen NORMAL NORMAL MG/DL Urine Leukocyte Esterase 3+ H NEGATIVE Urine RBC (Auto) 2+ H NEGATIVE Urine RBC RARE /HPF Urine WBC 25-50 H /HPF Urine Squamous Epithelial Cells 5-10 /HPF Urine Crystals NONE /LPF Urine Bacteria LARGE H /HPF Urine Casts NONE /LPF Urine Mucus NEGATIVE /LPF Urine Culture Indicated YES My Orders Orders - SUKH MIRANDA MD Ua Culture If Indicated (08/24/16 12:14) Cbc With Automated Diff (08/24/16 12:21) Comprehensive Metabolic Panel (08/24/16 12:21) Lactic Acid Analyzer (08/24/16 12:21) Blood Culture (08/24/16 12:21) Saline Lock/Iv-Start (08/24/16 12:21) Ns Iv 1000 Ml (Sodium Chloride 0.9%) (08/24/16 12:21) Hcg,Qualitative Serum (08/24/16 12:23) Ondansetron Injection (Zofran Injectio (08/24/16 12:30) Manual Differential (08/24/16 12:30) Urine Culture (08/24/16 12:50) Levofloxacin 750 Mg/150 Ml Iv (Levaquin (08/24/16 13:30) Medications Given in ED Current Medications Medications Dose Ordered Sig/Karolyn Route Start Time Stop Time Status Last Admin Dose Admin Levofloxacin/ Dextrose 150 ml @ 100 mls/hr ONCE ONCE IV 08/24/16 13:30 08/24/16 14:59 08/24/16 13:29 100 MLS/HR Ondansetron HCl 8 mg ONCE ONCE IVP 08/24/16 12:30 08/24/16 12:31 DC 08/24/16 12:43 8 MG Sodium Chloride 1,000 ml @ 0 mls/hr Q0M ONCE IV 08/24/16 12:21 08/24/16 12:24 DC 08/24/16 12:42 0 MLS/HR Vital Signs/I&O Vital Sign - Last 12Hours 08/24/16 12:15 Temp 102.8 Pulse 105 Resp 16 B/P (MAP) 106/73 Pulse Ox 98 O2 Delivery Room Air Capillary Refill : Less Than 3 Seconds Blood Pressure Mean: 84 Progress Note #1: Time: 12:30 Progress Note Septic workup was initiated. IV fluids and Zofran were ordered. Catheter UA specimen is pending. Progress Note #2: Time: 13:21 Progress Note Patient meets SIRS criteria with tachycardia and fever. UA results have returned. Urinary tract infection is now suspected source of sepsis. Chart was reviewed. A urine culture from April demonstrated enterococcus species sensitive to Levaquin. Levaquin has been ordered. Plan is to admit patient for treatment of sepsis. Departure Communication Time/Spoke to Admitting Phy: 13:[address] Jessica Impression Impression: Primary Impression: Sepsis Qualified Codes: A41.9 - Sepsis, unspecified organism Additional Impressions: Urinary tract infection Qualified Codes: N39.0 - Urinary tract infection, site not specified Nausea and vomiting Qualified Codes: R11.2 - Nausea with vomiting, unspecified Abdominal pain, acute, generalized Disposition: ADMITTED INPATIENT Condition: Improved Decision to Admit Reason: Admit from ER (General) Decision to Admit/Date: Aug 24, 2016 Time/Decision to Admit Time: 13:21 Departure-Patient Inst. Referrals: NO,LOCAL PHYSICIAN (PCP/Family) Primary Care Physician SUKH MIRANDA MD Aug 24, 2016 12:31
[2016-08-24 12:42] LABS: BASOPHILS % (AUTO) 0 % (0-10); EOSINOPHILS % (AUTO) 0 % (0-10); LYMPHOCYTES # (AUTO) 0.7 X 10^3 (1.0-4.0); LYMPHOCYTES % (AUTO) 7 % (12-44); MEAN CORPUSCULAR HEMOGLOBIN 26 PG (25-34); MEAN CORPUSCULAR HGB CONC 32 G/DL (32-36); MEAN CORPUSCULAR VOLUME 80 FL (80-99); MEAN PLATELET VOLUME 11.2 FL (7.4-10.4); MONOCYTES # (AUTO) 0.7 X 10^3 (0.0-1.0); MONOCYTES % (AUTO) 7 % (0-12); NEUTROPHILS # (AUTO) 8.5 X 10^3 (1.8-7.8); NEUTROPHILS % (AUTO) 85 % (42-75); PLATELET COUNT 223 10^3/uL (130-400); RED BLOOD COUNT 4.07 10^6/uL (4.35-5.85); RED CELL DISTRIBUTION WIDTH 15.8 % (10.0-14.5)
[2016-08-24 12:59] LABS: BILIRUBIN,URINE NEGATIVE (NEGATIVE); KETONES,URINE NEGATIVE (NEGATIVE); LEUKOCYTE ESTERASE ,URINE 3+ (NEGATIVE); NITRITE,URINE POSITIVE (NEGATIVE); PH,URINE 6 (5-9); PROTEIN,URINE 2+ (NEGATIVE); UROBILINOGEN,URINE NORMAL (NORMAL)
[2016-08-24 13:00] LABS: ALANINE AMINOTRANSFERASE 10 U/L (0-55); ALBUMIN 4.1 G/DL (3.2-4.5); ANION GAP 7 MMOL/L (5-14); ASPARTATE AMINO TRANSFERASE 10 U/L (5-34); BILIRUBIN,TOTAL 0.7 MG/DL (0.1-1.0); BLOOD UREA NITROGEN 11 MG/DL (7-18); BUN/CREATININE RATIO 12; CALCIUM 8.4 MG/DL (8.5-10.1); CARBON DIOXIDE 25 MMOL/L (21-32); CHLORIDE 106 MMOL/L (98-107); CREATININE SERUM 0.92 MG/DL (0.60-1.30); GFR ESTIMATED > 60; GLUCOSE 96 MG/DL (70-105); POTASSIUM 3.9 MMOL/L (3.6-5.0); SODIUM 138 MMOL/L (135-145); TOTAL PROTEIN 7.2 G/DL (6.4-8.2)
[2016-08-24 13:15] LABS: WBC,URINE 25-50 /HPF
[2016-08-24] MEDS ORDERED: LEVOFLOXACIN 750 MG/150 ML IV 150 ML IV ONE (13:30)
[2016-08-24 13:32] LABS: ANISOCYTOSIS SLIGHT; BAND NEUTROPHILS 2 %; BASOPHILS % (MANUAL) 0 %; EOSINOPHILS % (MANUAL) 0 %; LYMPHOCYTES % (MANUAL) 5 %; MICROCYTOSIS SLIGHT; NEUTROPHILS % (MANUAL) 91 %
[2016-08-24] MEDS ORDERED: diphenhydrAMINE 50 MG/ML INJ (BENADRYL) ONE (14:15)
[2016-08-24] MEDS ORDERED: FAMOTIDINE 20MG/2ML IV (PEPCID) ONE (14:17)
[2016-08-24] MEDS ORDERED: FAMOTIDINE 20MG/2ML IV (PEPCID) IVP ONE (14:30)
[2016-08-24] MEDS ORDERED: VANCOMYCIN INJECTION 1,000 MG in NS (IVPB) 250 ML IV ONE (14:30)
[2016-08-24] MEDS ORDERED: diphenhydrAMINE 50 MG/ML INJ (BENADRYL) IVP ONE (14:30)
[2016-08-24] MEDS ORDERED: IBUP-1780 PO (14:55)
[2016-08-24 15:20] VITALS: BP 98/51
[2016-08-24] MEDS: NS IV 1000 ML 1,000 ML IV SCH (16:19)
[2016-08-24 16:20] VITALS: BP 108/65
[2016-08-24] MEDS: ONDANSETRON 4 MG/2 ML (SDV) Z0FRAN IV PRN ×2 (16:22→20:39)
[2016-08-24] MEDS: IBUPROFEN 600 MG (MOTRIN) TAB PO PRN ×2 (16:25→22:44)
[2016-08-24 17:18] VITALS: BP 94/47
[2016-08-24 18:20] VITALS: BP 100/51
[2016-08-24 20:00] VITALS: BP 116/55
[2016-08-24] MEDS: ACETAMINOPHEN 500 MG TAB (TYLENOL) PO PRN (20:22)
[2016-08-24 23:30] VITALS: BP 106/58
[2016-08-25] VITALS (7 sets, daily range): BP systolic 84–117; BP diastolic 51–69
[2016-08-25] MEDS: ACETAMINOPHEN 500 MG TAB (TYLENOL) PO PRN ×3 (02:51→20:08)
[2016-08-25] MEDS: NS IV 1000 ML 1,000 ML IV SCH ×3 (03:45→13:51)
[2016-08-25] MEDS: IBUPROFEN 600 MG (MOTRIN) TAB PO PRN ×3 (08:17→22:04)
--- NOTE | 2016-08-25 08:35 | History & Physical-Hospitalist ---
HPI History of Present Illness: HPI/Chief Complaint CC: Fever with flank pain HPI: Pharmacy Review: She likely has a Levaquin sensitivity/allergy She has e. coli right now w/h/o ESBL so will initiate Meropenem 500 q6 for her treatment We could then move to outpatient treatment with this to [facility] once stable Dr. Gómez Review: Dr. Gómez would like her to see Dr. Hamlin in urology Nurse Report: No fever currently Motrin given this morning She has had one dose of Vanc due to Enterococcus hx She had a reaction with Levaquin last night but resolved with cessation of the med Her fever was at 104.9 last night She gave 4 months ago Patient Interview: Pts father states that she had a fever with her first and she ended up with a septic UTI An emergency was done following that by Dr. Gómez Physical Exam was stable; pts lungs were clear to auscultation bilaterally Pt has had two C-sections and a hysterectomy She had an allergic reaction to the Levaquin antibiotic yesterday and I educated the pt about this Pt is currently living with her and her 18 month old and her 4 month old The fever may persist for a couple days after she goes home Scribed by Hilton Rosales under direct supervision of Dr. Stoll Source: patient Exam Limitations: no limitations Date Seen 08/25/16 Time Seen by Provider: 09:30 Attending Physician Eder Jessica MD PCP No,Local Physician Referring Physician Date of Admission Aug 24, 2016 at 13:36 Home Medications & Allergies Home Medications Reviewed patient Home Medication Reconciliation Form Allergies Allergies Coded Allergies levofloxacin (Verified Allergy, Unknown, RASH, 08/24/16) Rash and itching at IV site penicillin (Unverified Allergy, Unknown, 10/18/14) Past [id number] Hx Patient Social History Marrital Status: Employed/Student: unemployed Alcohol Use: Denies Use Recreational Drug Use: No Smoking Status: Never a Smoker 2nd Hand Smoke Exposure: No Physical Abuse Screen: No Sexual Abuse: No Recent Foreign Travel: No Contact w/other who traveled: No Recent Hopitalizations: No Recent Infectious Disease Expo: No Immunizations Up To Date Tetanus Booster (TDap): Unknown Seasonal Allergies Seasonal Allergies: Yes Surgeries HX Surgeries: Yes Surgeries: Section, Tubal Ligation Respiratory Hx Respiratory Disorders: No Cardiovascular Hx Cardiovascular Disorders: No Neurological Hx Neurological Disorders: No Reproductive System : No Hx Reproductive Disorders: No Sexually Transmitted Disease: No HIV/AIDS: No Female Reproductive Disorders: Denies Genitourinary Hx Genitourinary Disorders: Yes (UROSEPSIS) Genitourinary Disorders: Kidney Infection, Bladder Infection, UTI-Chronic Gastrointestinal Hx Gastrointestinal Disorders: No Musculoskeletal Hx Musculoskeletal Disorders: No Endocrine Hx Endocrine Disorders: No HEENT HX ENT Disorders: No Loss of Vision: Denies Cancer Hx Cancer: No Psychosocial Hx Psychiatric Problems: No Integumentary HX Skin/Integumentary Disorder: No Blood Transfusions Hx Blood Disorders: No Adverse Reaction to a Blood Tr: No Family Medical History Significant Family History: No Pertinent Family Hx Family Hx: FH: blindness 19 MOTHER Hypertension 19 FATHER G8 SISTER Review of Systems Date Seen by Provider: Aug 25, 2016 Time Seen by Provider: 09:30 Constitutional: see HPI, dizziness, fever, malaise, weakness EENTM: no symptoms reported Respiratory: no symptoms reported Cardiovascular: no symptoms reported Gastrointestinal: nausea, vomiting Genitourinary: frequency, hematuria, pain Musculoskeletal: back pain Skin: no symptoms reported Psychiatric/Neurological: No Symptoms Reported All Other Systems Reviewed Negative Unless Noted: Yes Physical Exam Physical Exam Vital Signs Vital Sign - Last 12Hours 08/24/16 12:15 Temp 102.8 Pulse 105 Resp 16 B/P (MAP) 106/73 Pulse Ox 98 O2 Delivery Room Air Capillary Refill : Less Than 3 SecondsLess Than 3 Seconds General Appearance: No Apparent Distress, WD/WN, Other (pale, fatigued) Eyes: Bilateral Eye Normal Inspection, Bilateral Eye PERRL HEENT: PERRL/EOMI, Normal ENT Inspection, Pharynx Normal Neck: Full Range of Motion, Normal Inspection, Non Tender, Supple, Carotid Bruit Respiratory: Chest Non Tender, Lungs Clear, Normal Breath Sounds, No Accessory Muscle Use, No Respiratory Distress Cardiovascular: Regular Rate, Rhythm, No Edema, No Gallop, No JVD, No Murmur, Normal Peripheral Pulses Gastrointestinal: Normal Bowel Sounds, No Organomegaly, No Pulsatile Mass, Non Tender, Soft Back: Normal Inspection, No CVA Tenderness, No Vertebral Tenderness Extremity: Normal Capillary Refill, Normal Inspection, Normal Range of Motion, Non Tender, No Calf Tenderness, No Pedal Edema Neurologic/Psychiatric: Alert, Oriented x3, No Motor/Sensory Deficits, Normal Mood/Affect Skin: Normal Color, Warm/Dry Lymphatic: No Adenopathy Results Results/Procedures Lab Laboratory Tests 08/24/16 12:30 08/25/16 09:43 Assessment/Plan Admission Diagnosis Assessment: Sepsis due to UTI likely ESBL placed on Meropenem Recurrent UTI's in the past consulting Urology at the rec of [employer] Assessment and Plan Plan: Consulted with Dr. Gómez to discuss next step, he would like her to see Dr. Hamlin so I have conferred with Dr Hamlin and he will see the patient Switch patient to Meropenem 500 q6 for her treatment of presumed ESBL E Coli since hx before DC possible Monday or Monday Check labs in am Clinical Quality Measures DVT/VTE Risk/Contraindication: Risk Factor Score Per Nursin RFS Level Per Nursing on Admit: 3=High FLORA STOLL DO Aug 25, 2016 08:35
[2016-08-25] MEDS: MEROPENEM 500 MG in NS (IVPB) 100 ML IV SCH ×3 (09:30→18:50)
[2016-08-25] MEDS ORDERED: CATHETER FLUSH 10 ML SYR IV PRN (09:30)
[2016-08-25 09:50] LABS: BASOPHILS % (AUTO) 0 % (0-10); EOSINOPHILS % (AUTO) 0 % (0-10); LYMPHOCYTES # (AUTO) 0.7 X 10^3 (1.0-4.0); LYMPHOCYTES % (AUTO) 8 % (12-44); MEAN CORPUSCULAR HEMOGLOBIN 25 PG (25-34); MEAN CORPUSCULAR HGB CONC 32 G/DL (32-36); MEAN CORPUSCULAR VOLUME 81 FL (80-99); MEAN PLATELET VOLUME 11.1 FL (7.4-10.4); MONOCYTES # (AUTO) 0.3 X 10^3 (0.0-1.0); MONOCYTES % (AUTO) 4 % (0-12); NEUTROPHILS # (AUTO) 7.3 X 10^3 (1.8-7.8); NEUTROPHILS % (AUTO) 88 % (42-75); PLATELET COUNT 155 10^3/uL (130-400); RED BLOOD COUNT 3.42 10^6/uL (4.35-5.85); WHITE BLOOD COUNT 8.3 10^3/uL (4.3-11.0)
[2016-08-25 10:18] LABS: ALANINE AMINOTRANSFERASE 11 U/L (0-55); ALBUMIN 3.1 G/DL (3.2-4.5); ANION GAP 4 MMOL/L (5-14); ASPARTATE AMINO TRANSFERASE 12 U/L (5-34); BILIRUBIN,TOTAL 0.5 MG/DL (0.1-1.0); BLOOD UREA NITROGEN 11 MG/DL (7-18); BUN/CREATININE RATIO 14; CALCIUM 7.5 MG/DL (8.5-10.1); CARBON DIOXIDE 21 MMOL/L (21-32); CHLORIDE 113 MMOL/L (98-107); CREATININE SERUM 0.78 MG/DL (0.60-1.30); GFR ESTIMATED > 60; GLUCOSE 119 MG/DL (70-105); POTASSIUM 3.1 MMOL/L (3.6-5.0); SODIUM 138 MMOL/L (135-145); TOTAL PROTEIN 5.7 G/DL (6.4-8.2)
--- NOTE | 2016-08-25 11:47 | CONSULTATION REPORT ---
DATE OF SERVICE: 08/25/2016 SUMMARY: After reviewing the patient's record, interviewing her and examining her, this is a 20-year-old white lady with history of recurrent UTI and sepsis, admitted with urosepsis again, high fever and was started on Levaquin, had a reaction to it, switched to meropenem because of previous history of ESBL. She is improving on the treatment. She denies any history of urolithiasis and a CT back in 2014 did not show any stones. She denies any family history of stones. PERSONAL HISTORY: The patient is , has 2 children. No smoking, no alcohol and no drugs. PAST MEDICAL ILLNESSES: None, except for the recurrent UTIs. MEDICATIONS: Denies any medications. ALLERGIES: She is allergic to PENICILLIN and LEVAQUIN. PAST SURGICAL HISTORY: Surgery ortiz, had 2 C-sections and tubal ligation. FAMILY HISTORY: Hypertension and blindness. PHYSICAL EXAMINATION: VITAL SIGNS: Per chart. GENERAL: Well-nourished, well-developed, in no acute distress. HEAD: Normocephalic. ENT: Unremarkable. NECK: Supple. No bruits. CHEST: Clear, nontender. HEART: Regular rate and rhythm, no murmur. ABDOMEN: Soft. There is mild bilateral CVA tenderness. LOWER EXTREMITIES: No edema or cyanosis. NEUROLOGIC: Grossly intact, oriented x3. IMPRESSION: Urosepsis with history of recurrent urinary tract infections. PLAN: 1. Continue present management. We recommend to continue IV antibiotic for 24 hours afebrile and then switch to p.o. antibiotic that is sensitive to it, preferably Macrobid. Later on, the patient is to use Macrodantin 100 mg daily with supper and follow up with the office to adjust dose according to response. 2. Noncontrast CT scan of the abdomen and pelvis and manage accordingly. We will hold any cystoscopy at this point. If, despite above management, she continues to have infection we will consider that. The plan was fully explained to the patient. Job ID: [id number] DocumentID: [id number] Dictated Date: 08/25/2016 10:50:47 Plugger Worker Date: 08/25/2016 11:39:36 Dictated By: BILLY SILVA MD
--- NOTE | 2016-08-25 11:51 | Diagnostic Imaging Report ---
PROCEDURE: CT abdomen and pelvis without contrast. TECHNIQUE: Multiple contiguous axial images were obtained through the abdomen and pelvis without the use of intravenous contrast. INDICATION: Urosepsis. UTI. Fever and back pain. FINDINGS: There is perinephric stranding around the left kidney with minimal amount of fluid adjacent to the lower pole of the left kidney suggestive of pyelonephritis. There is no hydronephrosis and no urinary tract stone seen. The uterus appears unremarkable. There is suggestion of clips for bilateral tubal ligation. The lung bases demonstrate minimal bibasilar atelectasis. The liver, the gallbladder, the pancreas, and the adrenal glands appear unremarkable. The spleen is mildly enlarged measuring 13.8 x 5.2 x 13 cm. The abdominal aorta is normal in caliber. No para-aortic significantly enlarged lymph nodes. The appendix is minimally dilated with no inflammatory changes around it to suggest appendicitis. There are nonspecific mildly enlarged mesenteric lymph nodes There is no bowel obstruction. No pneumoperitoneum and no free peritoneal fluid or fluid collection is seen. There is a tiny fat-containing umbilical hernia. The osseous structures appear grossly unremarkable. IMPRESSION: 1. Left perinephric stranding suggestive of pyelonephritis. No urinary tract stones or hydronephrosis. 2. Tiny fat-containing umbilical hernia. 3. Mild splenomegaly. Dictated by: Dictated on workstation # [id number]
[2016-08-26] MEDS: MEROPENEM 500 MG in NS (IVPB) 100 ML IV SCH ×4 (00:14→17:57)
[2016-08-26] MEDS: ACETAMINOPHEN 500 MG TAB (TYLENOL) PO PRN ×3 (02:26→17:38)
[2016-08-26 04:00] VITALS: BP 100/63
[2016-08-26] MEDS: IBUPROFEN 600 MG (MOTRIN) TAB PO PRN ×2 (04:25→16:55)
[2016-08-26 05:07] LABS: BASOPHILS % (AUTO) 0 % (0-10); EOSINOPHILS % (AUTO) 1 % (0-10); LYMPHOCYTES # (AUTO) 1.5 X 10^3 (1.0-4.0); LYMPHOCYTES % (AUTO) 19 % (12-44); MEAN CORPUSCULAR HEMOGLOBIN 25 PG (25-34); MEAN CORPUSCULAR HGB CONC 31 G/DL (32-36); MEAN CORPUSCULAR VOLUME 80 FL (80-99); MEAN PLATELET VOLUME 12.1 FL (7.4-10.4); MONOCYTES # (AUTO) 0.6 X 10^3 (0.0-1.0); MONOCYTES % (AUTO) 7 % (0-12); NEUTROPHILS % (AUTO) 74 % (42-75); PLATELET COUNT 153 10^3/uL (130-400); RED BLOOD COUNT 3.25 10^6/uL (4.35-5.85); RED CELL DISTRIBUTION WIDTH 15.9 % (10.0-14.5); WHITE BLOOD COUNT 8.2 10^3/uL (4.3-11.0)
[2016-08-26 08:19] VITALS: BP 101/65
--- NOTE | 2016-08-26 08:48 | Progress Note-Urology ---
Progress Note-Urology Progress Notes/Assess & Plan Progress/Assessment & Plan TEMPERATURE COMING DOWN. FEELING AND LOOKING BETTER. CT:LT PYELO, NO OBSTRUCTION OR STONES CONTINUE PLANNED. WE WILL SEE PRN. Final Diagnosis UROSEPSIS, LT PYELONEPHRITIS, AND RECURRENT UTIS BILLY SILVA MD Aug 26, 2016 8:48 am
[2016-08-26] MEDS: NS IV 1000 ML 1,000 ML IV SCH ×2 (08:55→15:00)
[2016-08-26] MEDS ORDERED: NITR-65 PO (11:08)
--- NOTE | 2016-08-26 11:08 | Progress Note-Hospitalist ---
Progress Note HPI/CC on Admission CC: Fever with flank pain HPI: Pharmacy Review: She likely has a Levaquin sensitivity/allergy She has e. coli right now w/h/o ESBL so will initiate Meropenem 500 q6 for her treatment We could then move to [facility] Dr. Gómez Review: Dr. Gómez would like her to see Dr. Hamlin in urology Nurse Report: No fever currently Motrin given this morning She has had one dose of Vanc due to Enterococcus hx She had a reaction with Levaquin last night but resolved with cessation of the med Her fever was at 104.9 last night She gave 4 months ago Patient Interview: Pts father states that she had a fever with her first and she ended up with a septic UTI An emergency was done following that by Dr. Gómez Physical Exam was stable; pts lungs were clear to auscultation bilaterally Pt has had two C-sections and a hysterectomy She had an allergic reaction to the Levaquin antibiotic yesterday and I educated the pt about this Pt is currently living with her and her 18 month old and her 4 month old The fever may persist for a couple days after she goes home Scribed by Hilton Rosales under direct supervision of Dr. Stoll Progress Notes/Assess & Plan Date Seen 08/26/16 Time Seen by Provider: 10:30 Admission Dx/Process Assessment: Sepsis due to UTI likely ESBL placed on Meropenem Recurrent UTI's in the past consulting Urology at the rec of [employer] Diagonsis/Assessment & Plan Chart Review: Max fever 104.1 yesterday at [address] scan abdomen revealing pyelonephritis, no stones WBC 8.2 Hgb 8.2 K+ 3.1 Pharmacy Review: Complicated UTI Three more days of Meropenem Patient Interview: Pt is feeling well Pt was informed that she will be given some potassium and IV iron. It was explained that pt could have iron deficiency from having children back to back. Labs and CT scan that was normal, were discussed with the pt. Pt states that she would like to go home, but this will not be likely until her fever subsides. Pt confirms [facility] in [place] Pt has not been receiving pain medication Pt was encouraged to ambulate today Physical exam stable. Pt has not been having BMs Pt is currently menstruating Pt's father was curious about her infection and would like to not have this reoccur; he was informed that Dr. Hamlin will need to consult. Pt's dependency on Dr. Goodman was discussed and she was encouraged to stop drinking it to help prevent recurrent infections. AFVSS, pleasant, O x 3, improved, pale RRR, CTAB no rales noted No edema Laboratory Tests 08/26/16 04:42 Assessment: Sepsis due to UTI h/o ESBL placed on Meropenem and will DC on Macrobid this weekend [facility] Recurrent UTI's in the past consulting Urology at the rec of [employer] and Dr Hamlin will see the patient in [address] scan normal Severe iron deficiency anemia Plan: Check labs in am Possible DC tomorrow Send iron, oral antibiotics, and anti-nausea meds to [facility] Encourage ambulation Iron therapy sent to pharmacy Scribed by Cammie Hernandez under the direct supervision of Dr. Stoll. FLORA STOLL DO Aug 26, 2016 11:08
[2016-08-26] MEDS ORDERED: ONDA8TAB9 PO (11:09)
[2016-08-26] MEDS ORDERED: IRON150C3 PO (11:22)
[2016-08-26] MEDS: IRON SUCROSE INJECTION 200 MG in NS (IVPB) 100 ML IV SCH (11:23)
[2016-08-26] MEDS: MAGNESIUM 1 GM/100 ML IVPB 100 ML IV SCH ×2 (11:47→13:01)
[2016-08-26] MEDS: POTASSIUM CL 10MEQ/50ML IVPB 50 ML IV SCH ×3 (11:48→20:21)
[2016-08-26 12:40] VITALS: BP 119/70
[2016-08-26 16:56] VITALS: BP 130/74
[2016-08-26 19:11] VITALS: BP 116/94
[2016-08-26] MEDS ORDERED: KCL 20 MEQ TAB (K-DUR) PO NR (20:15)
[2016-08-26 23:30] VITALS: BP 119/65
[2016-08-27] MEDS: NS IV 1000 ML 1,000 ML IV SCH ×2 (00:18→14:19)
[2016-08-27] MEDS: MEROPENEM 500 MG in NS (IVPB) 100 ML IV SCH ×4 (00:18→17:08)
[2016-08-27 03:15] VITALS: BP 123/81
[2016-08-27] MEDS: ACETAMINOPHEN 500 MG TAB (TYLENOL) PO PRN ×2 (03:34→16:12)
[2016-08-27 06:13] LABS: BASOPHILS % (AUTO) 0 % (0-10); EOSINOPHILS # (AUTO) 0.1 10^3/uL (0.0-0.3); EOSINOPHILS % (AUTO) 1 % (0-10); LYMPHOCYTES # (AUTO) 1.2 X 10^3 (1.0-4.0); LYMPHOCYTES % (AUTO) 19 % (12-44); MEAN CORPUSCULAR HEMOGLOBIN 25 PG (25-34); MEAN CORPUSCULAR HGB CONC 31 G/DL (32-36); MEAN CORPUSCULAR VOLUME 80 FL (80-99); MEAN PLATELET VOLUME 12.3 FL (7.4-10.4); MONOCYTES # (AUTO) 0.4 X 10^3 (0.0-1.0); MONOCYTES % (AUTO) 6 % (0-12); NEUTROPHILS # (AUTO) 4.8 X 10^3 (1.8-7.8); NEUTROPHILS % (AUTO) 74 % (42-75); PLATELET COUNT 191 10^3/uL (130-400); RED BLOOD COUNT 3.34 10^6/uL (4.35-5.85); RED CELL DISTRIBUTION WIDTH 15.6 % (10.0-14.5); WHITE BLOOD COUNT 6.5 10^3/uL (4.3-11.0)
[2016-08-27 06:53] LABS: ALANINE AMINOTRANSFERASE 18 U/L (0-55); ALBUMIN 3.4 G/DL (3.2-4.5); ANION GAP 9 MMOL/L (5-14); ASPARTATE AMINO TRANSFERASE 18 U/L (5-34); BILIRUBIN,TOTAL 0.3 MG/DL (0.1-1.0); BLOOD UREA NITROGEN 5 MG/DL (7-18); BUN/CREATININE RATIO 7; CALCIUM 8.1 MG/DL (8.5-10.1); CARBON DIOXIDE 20 MMOL/L (21-32); CHLORIDE 110 MMOL/L (98-107); CREATININE SERUM 0.74 MG/DL (0.60-1.30); GFR ESTIMATED > 60; GLUCOSE 99 MG/DL (70-105); POTASSIUM 3.2 MMOL/L (3.6-5.0); SODIUM 139 MMOL/L (135-145); TOTAL PROTEIN 5.9 G/DL (6.4-8.2)
[2016-08-27 08:33] VITALS: BP 109/73
--- NOTE | 2016-08-27 11:35 | Progress Note-Hospitalist ---
Subjective HPI/CC On Admission Date Seen by Provider: Aug 27, 2016 Time Seen by Provider: 09:00 CC: Fever with flank pain HPI: Pharmacy Review: She likely has a Levaquin sensitivity/allergy She has e. coli right now w/h/o ESBL so will initiate Meropenem 500 q6 for her treatment We could then [facility] to [facility] Dr. Gómez Review: Dr. Gómez would like her to see Dr. Hamlin in urology Nurse Report: No fever currently Motrin given this morning She has had one dose of Vanc due to Enterococcus hx She had a reaction with Levaquin last night but resolved with cessation of the med Her fever was at 104.9 last night She gave 4 months ago Patient Interview: Pts father states that she had a fever with her first and she ended up with a septic UTI An emergency was done following that by Dr. Gómez Physical Exam was stable; pts lungs were clear to auscultation bilaterally Pt has had two C-sections and a hysterectomy She had an allergic reaction to the Levaquin antibiotic yesterday and I educated the pt about this Pt is currently living with her and her 18 month old and her 4 month old The fever may persist for a couple days after she goes home Scribed by Hilton Rosales under direct supervision of Dr. Babb 08/27/16 Patient reports that she is feeling better she denies flank pain or pelvic pain and states that she would like to go home. MAXIMUM TEMPERATURE 102.8 yesterday evening. Objective Exam Vital Signs Vital Sign - Last 12Hours 08/24/16 12:15 Temp 102.8 Pulse 105 Resp 16 B/P (MAP) 106/73 Pulse Ox 98 O2 Delivery Room Air Capillary Refill : Less Than 3 SecondsLess Than 3 Seconds General Appearance: No Apparent Distress Respiratory: Chest Non Tender, Lungs Clear, Normal Breath Sounds, No Accessory Muscle Use, No Respiratory Distress Cardiovascular: Regular Rate, Rhythm, No Edema, No Gallop, No JVD, No Murmur, Normal Peripheral Pulses Gastrointestinal: Normal Bowel Sounds, No Organomegaly, No Pulsatile Mass, Non Tender, Soft Results/Procedures Lab Laboratory Tests 08/27/16 05:10 Assessment/Plan Assessment and Plan Assess & Plan/Chief Complaint 1. Urinary tract infection with sepsis improving. We discussed the importance of staying for IV antibiotics until she is afebrile. Discussed the life- threatening nature of urinary tract infection with sepsis. Discussion was held with her father in the room who concurs with staying until she is better. E coli is growing it is listed as ESBL negative but she may have had ESBL positive infection the past so has been in isolation. Will review. ZIYAD IBANEZ MD Aug 27, 2016 11:35
[2016-08-27 12:00] VITALS: BP 116/70
[2016-08-27 16:42] VITALS: BP 120/84
[2016-08-27 20:00] VITALS: BP 99/62
[2016-08-28] VITALS (7 sets, daily range): BP systolic 110–126; BP diastolic 68–86
[2016-08-28] MEDS: MEROPENEM 500 MG in NS (IVPB) 100 ML IV SCH ×5 (00:09→23:43)
[2016-08-28] MEDS: NS IV 1000 ML 1,000 ML IV SCH ×3 (00:09→23:43)
[2016-08-28] MEDS: IBUPROFEN 600 MG (MOTRIN) TAB PO PRN (00:30)
--- NOTE | 2016-08-28 10:00 | Progress Note-Hospitalist ---
Subjective HPI/CC On Admission Date Seen by Provider: Aug 28, 2016 Time Seen by Provider: 08:20 CC: Fever with flank pain HPI: Pharmacy Review: She likely has a Levaquin sensitivity/allergy She has e. coli right now w/h/o ESBL so will initiate Meropenem 500 q6 for her treatment We [facility] Dr. Gómez Review: Dr. Gómez would like her to see Dr. Hamlin in urology Nurse Report: No fever currently Motrin given this morning She has had one dose of Vanc due to Enterococcus hx She had a reaction with Levaquin last night but resolved with cessation of the med Her fever was at 104.9 last night She gave 4 months ago Patient Interview: Pts father states that she had a fever with her first and she ended up with a septic UTI An emergency was done following that by Dr. Gómez Physical Exam was stable; pts lungs were clear to auscultation bilaterally Pt has had two C-sections and a hysterectomy She had an allergic reaction to the Levaquin antibiotic yesterday and I educated the pt about this Pt is currently living with her and her 18 month old and her 4 month old The fever may persist for a couple days after she goes home Scribed by Hilton Rosales under direct supervision of Dr. Babb 08/27/16 Patient reports that she is feeling better she denies flank pain or pelvic pain and states that she would like to go home. MAXIMUM TEMPERATURE 102.8 yesterday evening. 08/28/16 Patient asked about discharge as she would like to go home. MAXIMUM TEMPERATURE however was 101 without Reiger's yesterday. She denies dysuria abdominal pain or flank pain. Objective Exam Vital Signs Vital Sign - Last 12Hours 08/24/16 12:15 Temp 102.8 Pulse 105 Resp 16 B/P (MAP) 106/73 Pulse Ox 98 O2 Delivery Room Air Capillary Refill : Less Than 3 SecondsLess Than 3 Seconds General Appearance: No Apparent Distress Respiratory: Chest Non Tender, Lungs Clear, Normal Breath Sounds, No Accessory Muscle Use, No Respiratory Distress Cardiovascular: Regular Rate, Rhythm, No Edema, No Gallop, No JVD, No Murmur Gastrointestinal: Normal Bowel Sounds, No Organomegaly, No Pulsatile Mass, Non Tender, Soft Assessment/Plan Assessment and Plan Assess & Plan/Chief Complaint 1. Urinary tract infection with sepsis improving. We discussed the importance of staying for IV antibiotics until she is afebrile. Discussed the life- threatening nature of urinary tract infection with sepsis. Discussion was held with her father in the room who concurs with staying until she is better. E coli is growing it is listed as ESBL negative but she may have had ESBL positive infection in the past so has been in isolation. after discussion we will keep the patient for one more day provided that temperatures continue to return to normal. She reports a rash only with penicillin without anaphylaxis. We're limited on choices but discussed a second or third generation penicillin medication reporting a 5-10 percent risk for rash. She is going to accept this sort likely discharge on either Omnicef or Ceftin possibly in a.m. ZIYAD IBANEZ MD Aug 28, 2016 10:00
[2016-08-28] MEDS: IRON SUCROSE INJECTION 200 MG in NS (IVPB) 100 ML IV SCH (10:44)
[2016-08-29 04:00] VITALS: BP 116/68
[2016-08-29] MEDS: NS IV 1000 ML 1,000 ML IV SCH (05:11)
[2016-08-29] MEDS: MEROPENEM 500 MG in NS (IVPB) 100 ML IV SCH ×2 (05:18→11:00)
[2016-08-29 08:07] VITALS: BP 128/86
[2016-08-29] MEDS ORDERED: CEFD300C3 PO (09:04)
--- NOTE | 2016-08-29 09:08 | Discharge Summary-Hospitalist ---
Diagnosis/Chief Complaint Date of Admission Aug 24, 2016 at 13:36 Date of Discharge Discharge Date: Aug 29, 2016 Discharge Time: 08:45 Admission Diagnosis Assessment: Sepsis due to UTI likely ESBL placed on Meropenem Recurrent UTI's in the past consulting Urology at the rec of [employer] Discharge Diagnosis Assessment: Sepsis due to UTI h/o ESBL placed on Meropenem and will DC on Cefdinir this weekend and that was sent to [facility] Recurrent UTI's in the past consulting Urology at the rec of [employer] and Dr Hamlin will see the patient in [address] scan normal Severe iron deficiency anemia Plan: Check labs in am Possible DC tomorrow Send iron, oral antibiotics, and anti-nausea meds to [facility] Encourage ambulation Iron therapy sent to pharmacy Scribed by Cammie Hernandez under the direct supervision of Dr. Stoll. Reason Hospital Visit/Course CC: Fever with flank pain HPI: Pharmacy Review: She likely has a Levaquin sensitivity/allergy She has e. coli right now w/h/o ESBL so will initiate Meropenem 500 q6 for her treatment We could then move to outpatient treatment with this to [facility] once stable Dr. Gómez Review: Dr. Gómez would like her to see Dr. Hamlin in urology Nurse Report: No fever currently Motrin given this morning She has had one dose of Vanc due to Enterococcus hx She had a reaction with Levaquin last night but resolved with cessation of the med Her fever was at 104.9 last night She gave 4 months ago Patient Interview: Pts father states that she had a fever with her first and she ended up with a septic UTI An emergency was done following that by Dr. Gómez Physical Exam was stable; pts lungs were clear to auscultation bilaterally Pt has had two C-sections and a hysterectomy She had an allergic reaction to the Levaquin antibiotic yesterday and I educated the pt about this Pt is currently living with her and her 18 month old and her 4 month old The fever may persist for a couple days after she goes home Scribed by Hilton Rosales under direct supervision of Dr. Stoll 08/27/16 Patient reports that she is feeling better she denies flank pain or pelvic pain and states that she would like to go home. MAXIMUM TEMPERATURE 102.8 yesterday evening. 08/28/16 Patient asked about discharge as she would like to go home. MAXIMUM TEMPERATURE however was 101 without Reiger's yesterday. She denies dysuria abdominal pain or flank pain. Note from 08/29/16: Patient doing well and ambulating the halls Ready for discharge Will have close follow-up with urology Omnicef will be prescribed twice daily at discharge for 4 days and then will see Dr. Hamlin Recommended ceasing soda consumption and increase water intake only No fever, vital signs stable, pleasant, much improved Regular rate and rhythm, clear to auscultation bilaterally No edema Hospital course: Patient had a lengthy hospital course due to the severity of her pyelonephritis and continued fever of 104 range. Urology was consulted and he will see her as an outpatient the patient required iron infusions because iron level was undetectable and hemoglobin was 8.0. Meropenem was maintained due to ESBL history and overall completed regimen without difficulty with ambulating bowels are moving eating and drinking adequately and was deemed stable for discharge with close follow-up. I recommended cessation of soda consumption in addition increase fluid intake to try to prevent the recurrent UTIs. Discharge Summary Discharge Physical Examination Allergies: Coded Allergies: levofloxacin (Verified Allergy, Unknown, RASH, 08/24/16) Rash and itching at IV site penicillin (Unverified Allergy, Unknown, 10/18/14) Vitals & I&Os Vital Signs Date Time Temp Pulse Resp B/P (MAP) Pulse Ox O2 Delivery O2 Flow Rate FiO2 08/29/16 08:07 98.2 78 18 128/86 98 Room Air Hospital Course Labs (last 24 hrs) Microbiology 08/24/16 Blood Culture - Preliminary, Resulted No growth 08/24/16 Urine Culture - Final, Complete Escherichia Coli Discharge Home Medications: Active Scripts Active Cefdinir 300 Mg Capsule 300 Mg PO BID Ferrex 150 (Iron Polysaccharide Complex) 150 Mg Capsule 150 Mg PO BID Zofran Odt (Ondansetron) 8 Mg Tab.rapdis 8 Mg PO Q6H Reported Ibuprofen 800 Mg Tablet 800 Mg PO Q6H PRN Instructions to patient/family Please see electonic discharge instructions given to patient. Clinical Quality Measures DVT/VTE Risk/Contraindication: Risk Factor Score Per Nursin RFS Level Per Nursing on Admit: 3=High FLORA STOLL DO Aug 29, 2016 09:08
[2016-08-29] MEDS ORDERED: IRON SUCROSE INJECTION 200 MG in NS (IVPB) 100 ML IV ONE (09:30)
[2016-08-29] MEDS ORDERED: IRON SUCROSE INJECTION 200 MG in NS (IVPB) 100 ML IV SCH (10:00)
[2016-08-29 12:02] VITALS: BP 116/86
[2016-08-30] MEDS ORDERED: PRD20T PO (21:21)
[2016-08-30] MEDS ORDERED: TRIA100A TP (21:21)
== END 2016-08-29 12:20 | disposition home or self-care (01) | DRG 872 ==
LOC: EDUNIT# 12:12 → ER 12:14 → 4TH 13:36
PROVIDERS: ADMIT Internal Medicine; ATTEND Internal Medicine
DX: A41.9 Sepsis, unspecified organism (principal); N39.0 Urinary tract infection, site not specified; Z16.12 Extended spectrum beta lactamase (ESBL) resistance; B96.20 Unspecified Escherichia coli [E. coli] as the cause of diseases classified elsewhere; D50.9 Iron deficiency anemia, unspecified
CPT/HCPCS: 36415; 51701; 74176; 80053; 81000; 83540; 83605; 84703; 85007; 85025; 85027; 87040; 87088; 87186; 96361; 96365; 96375

== ENCOUNTER 2016-08-30 19:42 | Emergency (ER) | payer MEDICAID ==
[~2016-08-30] VITALS: Ht 165.1 cm; Wt 73.5 kg
[~2016-08-30 19:42] MED LIST changes: +CEFD300C3 PO; +IRON150C3 PO
[2016-08-30 19:50] VITALS: BP 106/83
--- NOTE | 2016-08-30 20:06 | ED Integumentary General ---
General Chief Complaint: Skin/Wound Problems Stated Complaint: RT ARM SWELLING AFTER IV WAS REMOVED YESTERDAY Source: patient, family, RN notes reviewed, old records Exam Limitations: no limitations History of Present Illness Time seen by provider: 19:52 Initial Comments Patient presents along c/ her parents c/ c/o RUE redness and pain that started last PM and has become progressively worse since. Currrently rates her pain a 9 /10. Patient just discharged from here yesterday p/ a extended stay for Urosepsis. Area is around and above where she had a saline lock in her right antecubital space. Apparently was stuck multiple times trying to keep IV access and sounds like they had to go back to her right antecubital space for a second time. Is currently on Omnicef. Upon review, she did receive Meropenum thru the site and reviewing potential side effects includes infusion site redness/localized inflammatory symptoms (1-2%). Patient denies any fever. No other complaints voiced. Timing/Duration: yesterday, getting worse Severity: severe Location: extremities (RUE) Possible Cause: medications (??? infusion) Modifying Factors: improves with other (palpation makes pain worse) Associated Symptoms: No blisters, change in skin texture, edema (trace), No fever Allergies and Home Medications Allergies Coded Allergies: levofloxacin (Verified Allergy, Unknown, RASH, 08/24/16) Rash and itching at IV site penicillin (Unverified Allergy, Unknown, 10/18/14) Home Medications Cefdinir 300 Mg Capsule, 300 MG PO BID, #8 Prescribed by: FLORA STOLL on 08/29/16 0904 Ibuprofen 800 Mg Tablet, 800 MG PO Q6H PRN for PAIN-MILD, (Reported) Iron Polysaccharide Complex 150 Mg Capsule, 150 MG PO BID, #60 Ref 3 Prescribed by: FLORA STOLL on 08/26/16 1122 Ondansetron 8 Mg Tab.rapdis, 8 MG PO Q6H, #20 Prescribed by: FLORA STOLL on 08/26/16 1109 Prednisone 20 Mg Tab, 30 MG PO BID, #15 Ref 0 Prescribed by: SHERRIE RAMIREZ on 08/30/162120 Triamcinolone Acetonide 100 Gm Aerosol, 1 APPLIC TP BID, #30 Ref 0 Prescribed by: SHERRIE RAMIREZ on 08/30/162120 Constitutional: see HPI : No Skin: see HPI, change in color, other (red, painful area RUE c/ trace edema.) All Other Systems Reviewed Negative Unless Noted: Yes (Negative excepted noted.) Past Belwcxd-Goryft-Ljtels Hx Patient Social History Alcohol Use: Denies Use Recreational Drug Use: No Smoking Status: Never a Smoker 2nd Hand Smoke Exposure: No Recent Foreign Travel: No Contact w/Someone Who Travel: No Recent Hopitalizations: No Immunizations Up To Date Tetanus Booster (TDap): Unknown PED Vaccines UTD: Yes Seasonal Allergies Seasonal Allergies: Yes Surgeries HX Surgeries: Yes Surgeries: Section, Tubal Ligation Respiratory Hx Respiratory Disorders: No Cardiovascular Hx Cardiac Disorders: No Neurological Hx Neurological Disorders: No Reproductive System Hx Reproductive Disorders: No Sexually Transmitted Disease: No HIV/AIDS: No Female Reproductive Disorders: Denies Genitourinary Hx Genitourinary Disorders: Yes (UROSEPSIS) Genitourinary Disorders: Kidney Infection, Bladder Infection, UTI-Chronic Gastrointestinal Hx Gastrointestinal Disorders: No Musculoskeletal Hx Musculoskeletal Disorders: No Endocrine Hx Endocrine Disorders: No HEENT HX ENT Disorders: No Loss of Vision: Denies Cancer Hx Cancer: No Psychosocial Hx Psychiatric Problems: No Integumentary HX Skin/Integumentary Disorder: No Blood Transfusions Hx Blood Disorders: No Adverse Reaction to a Blood Tr: No Family Medical History Significant Family History: No Pertinent Family Hx Family Medial History: FH: blindness 19 MOTHER Hypertension 19 FATHER G8 SISTER Physical Exam Vital Signs Vital Sign - Last 12Hours 08/30/16 19:50 Temp 98.0 Pulse 97 Resp 20 B/P (MAP) 106/83 Pulse Ox 98 O2 Delivery Room Air Capillary Refill : General Appearance: WD/WN, no apparent distress Cardiovascular: regular rate, rhythm Respiratory: no respiratory distress Extremities: inflammation (RUE extending from her right antecubital space upward anterior and medially; warm to touch; painful/tender to touch; does melany some.) Neurologic/Psychiatric: no motor/sensory deficits, alert, oriented x 3 Skin: warm/dry, other (red) Skin Problem Location: upper extremities (RUE) Skin Problem Character: blanching, erythema, swelling (trace), tenderness, warm Progress/Results/Core Measures Results/Orders Lab Results Laboratory Tests Test 08/30/16 20:28 Range/Units White Blood Count 10.7 4.3-11.0 10^3/uL Red Blood Count 4.13 L 4.35-5.85 10^6/uL Hemoglobin 10.5 #L 11.5-16.0 G/DL Hematocrit 33 L 35-52 % Mean Corpuscular Volume 79 L 80-99 FL Mean Corpuscular Hemoglobin 25 25-34 PG Mean Corpuscular Hemoglobin Concent 32 32-36 G/DL Red Cell Distribution Width 15.9 H 10.0-14.5 % Platelet Count 383 130-400 10^3/uL Mean Platelet Volume 10.4 7.4-10.4 FL Neutrophils (%) (Auto) 74 42-75 % Lymphocytes (%) (Auto) 19 12-44 % Monocytes (%) (Auto) 7 0-12 % Eosinophils (%) (Auto) 0 0-10 % Basophils (%) (Auto) 0 0-10 % Neutrophils # (Auto) 7.9 H 1.8-7.8 X 10^3 Lymphocytes # (Auto) 2.1 1.0-4.0 X 10^3 Monocytes # (Auto) 0.7 0.0-1.0 X 10^3 Eosinophils # (Auto) 0.0 0.0-0.3 10^3/uL Basophils # (Auto) 0.0 0.0-0.1 10^3/uL Sodium Level 138 135-145 MMOL/L Potassium Level 3.7 3.6-5.0 MMOL/L Chloride Level 103 98-107 MMOL/L Carbon Dioxide Level 22 21-32 MMOL/L Anion Gap 13 5-14 MMOL/L Blood Urea Nitrogen 11 7-18 MG/DL Creatinine 0.80 0.60-1.30 MG/DL Estimat Glomerular Filtration Rate > 60 BUN/Creatinine Ratio 14 0-20 Glucose Level 94 70-105 MG/DL Calcium Level 9.0 8.5-10.1 MG/DL Total Bilirubin 0.6 0.1-1.0 MG/DL Aspartate Amino Transf (AST/SGOT) 8 5-34 U/L Alanine Aminotransferase (ALT/SGPT) 12 0-55 U/L Alkaline Phosphatase 80 40-136 U/L Total Protein 7.3 6.4-8.2 GM/DL Albumin 4.1 3.2-4.5 GM/DL My Orders Orders - SHERRIE RAMIREZ DO Cbc With Automated Diff (6/13/17 20:14) Comprehensive Metabolic Panel (08/30/16 20:14) Dexamethasone Pf Injection (Decadron Pf (08/30/16 21:15) Diphenhydramine Tablet (Benadryl Tablet) (08/30/16 21:15) Triamcinolone 0.1% Cream 15 Gm (Kenalog (08/30/16 21:25) Triamcinolone 0.1% Cream 15 Gm (Kenalog (08/31/16 09:00) Vital Signs/I&O Vital Sign - Last 12Hours 08/30/16 19:50 Temp 98.0 Pulse 97 Resp 20 B/P (MAP) 106/83 Pulse Ox 98 O2 Delivery Room Air Progress Note : Progress Note In light of her lab, being afebrile, and being on antibiotics the entire time including Omnicef presently, feel this must be secondary to the Meropenum infusion and is a inflammatory reaction to the medication which is documented in literature as a potential side effect. Going to proceed in that direction and have her continue the Omnicef. Departure Impression Impression: Primary Impression: Infusion reaction Disposition: HOME, SELF-CARE Condition: Stable Departure-Patient Inst. Decision time for Depature: 21:16 Referrals: NEGRITO PARMAR MD Patient Instructions: Adverse Drug Reactions, Adult (DC) Add. Discharge Instructions: All discharge instructions reviewed with patient and/or family. Voiced understanding. CAN REPEAT THE BENADRYL 50 mg EVERY 6 HOURS NEEDED. CONTINUE YOUR CURRENT ANTIBIOTIC DIRECTED. Scripts Triamcinolone Acetonide (Kenalog) 100 Gm Aerosol 1 APPLIC TP BID for RED AREA, #30 GM 0 Refills Prov: SHERRIE RMAIREZ DO 08/30/16 Prednisone (Prednisone) 20 Mg Tab 30 MG PO BID, #15 TAB 0 Refills Prov: SHERRIE RAMIREZ DO 08/30/16 SHERRIE RAMIREZ DO Aug 30, 2016 20:06
[2016-08-30 20:37] LABS: BASOPHILS % (AUTO) 0 % (0-10); EOSINOPHILS % (AUTO) 0 % (0-10); LYMPHOCYTES # (AUTO) 2.1 X 10^3 (1.0-4.0); LYMPHOCYTES % (AUTO) 19 % (12-44); MEAN CORPUSCULAR HEMOGLOBIN 25 PG (25-34); MEAN CORPUSCULAR HGB CONC 32 G/DL (32-36); MEAN CORPUSCULAR VOLUME 79 FL (80-99); MEAN PLATELET VOLUME 10.4 FL (7.4-10.4); MONOCYTES # (AUTO) 0.7 X 10^3 (0.0-1.0); MONOCYTES % (AUTO) 7 % (0-12); NEUTROPHILS # (AUTO) 7.9 X 10^3 (1.8-7.8); NEUTROPHILS % (AUTO) 74 % (42-75); PLATELET COUNT 383 10^3/uL (130-400); RED BLOOD COUNT 4.13 10^6/uL (4.35-5.85); RED CELL DISTRIBUTION WIDTH 15.9 % (10.0-14.5); WHITE BLOOD COUNT 10.7 10^3/uL (4.3-11.0)
[2016-08-30 20:57] LABS: ALANINE AMINOTRANSFERASE 12 U/L (0-55); ALBUMIN 4.1 GM/DL (3.2-4.5); ANION GAP 13 MMOL/L (5-14); ASPARTATE AMINO TRANSFERASE 8 U/L (5-34); BILIRUBIN,TOTAL 0.6 MG/DL (0.1-1.0); BLOOD UREA NITROGEN 11 MG/DL (7-18); BUN/CREATININE RATIO 14 (0-20); CARBON DIOXIDE 22 MMOL/L (21-32); CHLORIDE 103 MMOL/L (98-107); GFR ESTIMATED > 60; GLUCOSE 94 MG/DL (70-105); POTASSIUM 3.7 MMOL/L (3.6-5.0); SODIUM 138 MMOL/L (135-145); TOTAL PROTEIN 7.3 GM/DL (6.4-8.2)
[2016-08-30] MEDS ORDERED: DEXAMETHASONE PF 10 MG/ML (DECADRON) VIAL IM ONE (21:15)
[2016-08-30] MEDS ORDERED: diphenhydrAMINE 25 MG TAB (BENADRYL) PO ONE (21:15)
[2016-08-30] MEDS ORDERED: TRIA100A TP (21:21)
[2016-08-30] MEDS ORDERED: PRD20T PO (21:21)
[2016-08-30] MEDS ORDERED: TRIAMCINOLONE 0.1% CR (KENALOG) 15 GM TUBE ONE (21:25)
[2016-08-31] MEDS ORDERED: TRIAMCINOLONE 0.1% CR (KENALOG) 15 GM TUBE TOP SCH (09:00)
== END 2016-08-30 21:39 | disposition home or self-care (01) ==
LOC: EDUNIT# 19:42 → ER 19:44
DX: T50.995A Adverse effect of other drugs, medicaments and biological substances, initial encounter (principal)
CPT/HCPCS: 36415; 80053; 85025; 99283

== ENCOUNTER 2016-12-24 14:27 | Emergency (ER) | payer MEDICAID ==
[~2016-12-24] VITALS: Ht 165.1 cm; Wt 77.1 kg
[~2016-12-24 14:27] MED LIST changes: +PRD20T PO; +TRIA100A TP
[2016-12-24] MEDS ORDERED: ONDANSETRON 4 MG/2 ML (SDV) Z0FRAN IVP ONE (15:15)
[2016-12-24 15:21] LABS: BILIRUBIN,URINE NEGATIVE (NEGATIVE); KETONES,URINE NEGATIVE (NEGATIVE); LEUKOCYTE ESTERASE ,URINE NEGATIVE (NEGATIVE); NITRITE,URINE NEGATIVE (NEGATIVE); PH,URINE 6 (5-9); PROTEIN,URINE NEGATIVE (NEGATIVE); UROBILINOGEN,URINE NORMAL (NORMAL)
[2016-12-24 15:37] LABS: WBC,URINE 0-2 /HPF
[2016-12-24 15:39] LABS: BASOPHILS % (AUTO) 0 % (0-10); EOSINOPHILS # (AUTO) 0.1 10^3/uL (0.0-0.3); EOSINOPHILS % (AUTO) 1 % (0-10); LYMPHOCYTES # (AUTO) 1.7 X 10^3 (1.0-4.0); LYMPHOCYTES % (AUTO) 14 % (12-44); MEAN CORPUSCULAR HEMOGLOBIN 29 PG (25-34); MEAN CORPUSCULAR HGB CONC 33 G/DL (32-36); MEAN CORPUSCULAR VOLUME 86 FL (80-99); MEAN PLATELET VOLUME 11.2 FL (7.4-10.4); MONOCYTES # (AUTO) 0.5 X 10^3 (0.0-1.0); MONOCYTES % (AUTO) 4 % (0-12); NEUTROPHILS # (AUTO) 9.9 X 10^3 (1.8-7.8); NEUTROPHILS % (AUTO) 82 % (42-75); PLATELET COUNT 271 10^3/uL (130-400); RED BLOOD COUNT 4.25 10^6/uL (4.35-5.85); WHITE BLOOD COUNT 12.2 10^3/uL (4.3-11.0)
[2016-12-24 16:03] LABS: ALANINE AMINOTRANSFERASE 9 U/L (0-55); ALBUMIN 4.2 GM/DL (3.2-4.5); ANION GAP 8 MMOL/L (5-14); ASPARTATE AMINO TRANSFERASE 13 U/L (5-34); BILIRUBIN,TOTAL 0.5 MG/DL (0.1-1.0); BLOOD UREA NITROGEN 12 MG/DL (7-18); BUN/CREATININE RATIO 14; CALCIUM 8.9 MG/DL (8.5-10.1); CARBON DIOXIDE 24 MMOL/L (21-32); CHLORIDE 107 MMOL/L (98-107); CREATININE SERUM 0.86 MG/DL (0.60-1.30); GFR ESTIMATED > 60; GLUCOSE 86 MG/DL (70-105); LIPASE 5 U/L (8-78); POTASSIUM 3.7 MMOL/L (3.6-5.0); SODIUM 139 MMOL/L (135-145); TOTAL PROTEIN 7.5 GM/DL (6.4-8.2)
[2016-12-24] MEDS ORDERED: IOHEXOL 350 MG/ML 100 ML (OMNIPAQUE 350) VIAL IV ONE (16:15)
[2016-12-24] MEDS ORDERED: NS 100 ML (IVPB) BAG IV ONE (16:15)
--- NOTE | 2016-12-24 17:14 | Diagnostic Imaging Report ---
PROCEDURE: CT abdomen and pelvis with contrast, rule out appendicitis. TECHNIQUE: Multiple contiguous axial images were obtained through the abdomen and pelvis after the administration of intravenous contrast. DATE: 12/24/2016. COMPARISON: CT abdomen and pelvis 08/25/2016. INDICATION: 21-year-old female, lower abdominal pain, nausea. FINDINGS: There is minimal dependent atelectasis in the visualized lung bases. The heart is not enlarged. There is no pericardial effusion. The liver is normal in size and contour. There is no identified liver lesion. The main, right, and left portal veins are patent. The gallbladder is unremarkable. There is no intrahepatic or extrahepatic bile duct dilation. The main pancreatic duct is not abnormally dilated. Unremarkable appearance of the pancreatic parenchyma. The spleen measures 10.8 cm in craniocaudal dimension and is not enlarged. The adrenal glands are unremarkable. Unremarkable appearance of the renal parenchyma. The urinary collecting systems are not distended. There is no identified renal or ureteral stone. There is a linear area of low attenuation in the region of the vaginal vault likely relating to tampon. There is a right ovarian follicle. There are metallic clips in the region of the right and left adnexa. There is a trace amount of free pelvic fluid which is potentially a physiologic finding. There is otherwise grossly unremarkable appearance of the uterus and adnexa on the CT. There is mild fatty wall thickening of the left colon which may relate to findings of chronic colitis. There is no identified nonfat attenuation wall thickening of bowel. The appendix is well illustrated on axial image #109 and adjacent sequential images. There is no evidence of acute appendicitis. There is no free intraperitoneal air. There is no drainable fluid collection. There is a very small fat-containing umbilical hernia. There are subcentimeter short axis mesenteric lymph nodes which are nonspecific. These do not particularly meet size criteria for adenopathy. These are unchanged since comparison exam. There is no identified acute bony abnormality. IMPRESSION: CT ABDOMEN AND PELVIS. 1. No acute abnormality in the abdomen or pelvis. 2. Trace amount of free pelvic fluid which is most likely physiologic in etiology. Dictated by: Dictated on workstation # [id number]
[2016-12-24] MEDS ORDERED: KETOROLAC 30 MG/ML VIAL IVP ONE (17:45)
--- NOTE | 2016-12-24 18:04 | ED Abdominal Pain ---
General Chief Complaint: Abdominal/GI Problems Stated Complaint: LOWER ABD SHARP PAIN, NAUSEA Nursing Triage Note: PT REPORTS SUPRAPUBIC ABD PAIN AND NAUSEA X 3 WEEKS. SHE IS CURRENTLY TAKING BACTRIM Q OTHER DAY FOR CHRONIC UTI. Sepsis Screen: No Definite Risk Source of Information: Patient Exam Limitations: No Limitations History of Present Illness Time Seen By Provider: 14:59 Initial Comments This 21-year-old young lady presents to the emergency room with epigastric and suprapubic pain for the past 2 hours. She has nausea and vomiting associated with the pain. Pain is worse with standing, walking, and riding in the car. Patient started having some vaginal bleeding this morning and may be starting a menstrual cycle. Family is very concerned about her history of urinary tract infections and an episode of sepsis she had in August. They're concerned she may be developing the same problems. They're also concerned she may be dehydrated. Her last menstrual period was November 24. She also reports having some vaginal discharge and pain with intercourse recently. The vaginal discharge is white and without odor. Patient has also been nauseated for about 3 weeks. Family is concerned about possible ectopic as well. She is presently on Bactrim for UTI prophylaxis. Allergies and Home Medications Allergies Coded Allergies: levofloxacin (Verified Allergy, Unknown, RASH, 08/24/16) Rash and itching at IV site penicillin (Unverified Allergy, Unknown, 10/18/14) Home Medications Cefdinir 300 Mg Capsule, 300 MG PO BID, #8 Prescribed by: FLORA STOLL on 08/29/16 0904 Ibuprofen 800 Mg Tablet, 800 MG PO Q6H PRN for PAIN-MILD, (Reported) Iron Polysaccharide Complex 150 Mg Capsule, 150 MG PO BID, #60 Ref 3 Prescribed by: FLORA STOLL on 08/26/16 1122 Ondansetron 8 Mg Tab.rapdis, 8 MG PO Q6H, #20 Prescribed by: FLORA STOLL on 08/26/16 1109 Ondansetron 4 Mg Tab.rapdis, 4 MG SL Q4H, #10 Prescribed by: SUKH TRENT on 12/24/16 1805 Prednisone 20 Mg Tab, 30 MG PO BID, #15 Ref 0 Prescribed by: SHERRIE RAMIREZ on 08/30/16 2121 Triamcinolone Acetonide 100 Gm Aerosol, 1 APPLIC TP BID, #30 Ref 0 Prescribed by: SHERRIE RAMIREZ on 08/30/161 Review of Systems Constitutional: no symptoms reported EENTM: No Symptoms Reported Respiratory: No Symptoms Reported Cardiovascular: No Symptoms Reported Gastrointestinal: See HPI Genitourinary: See HPI Musculoskeletal: no symptoms reported Skin: no symptoms reported Psychiatric/Neurological: No Symptoms Reported Endocrine: No Symptoms Reported Past Crmjjhl-Nyjqep-Xnnvvy Hx Patient Social History Alcohol Use: Denies Use Recreational Drug Use: No Smoking Status: Never a Smoker 2nd Hand Smoke Exposure: No Recent Foreign Travel: No Contact w/Someone Who Travel: No Recent Infectious Disease Expo: No Recent Hopitalizations: No Physical Abuse: No Sexual Abuse: No Immunizations Up To Date Tetanus Booster (TDap): Unknown PED Vaccines UTD: Yes Seasonal Allergies Seasonal Allergies: Yes Surgeries History of Surgeries: Yes Surgeries: Section, Tubal Ligation Respiratory History of Respiratory Disorde: No Cardiovascular History of Cardiac Disorders: No Neurological History of Neurological Disord: No Reproductive System Hx Reproductive Disorders: No Sexually Transmitted Disease: No HIV/AIDS: No Female Reproductive Disorders: Denies Genitourinary History of Genitourinary Disor: Yes (history of sepsis from urinary tract infection) Genitourinary Disorders: Kidney Infection, Bladder Infection, UTI-Chronic Gastrointestinal History of Gastrointestinal Di: No Musculoskeletal History of Musculoskeletal Dis: No Endocrine History of Endocrine Disorders: No HEENT History of HEENT Disorders: No Loss of Vision: Denies Cancer History of Cancer: No Psychosocial History of Psychiatric Problem: No Suicide Risk Score: 0 Integumentary History of Skin or Integumenta: No Blood Transfusions History of Blood Disorders: No Adverse Reaction to a Blood Tr: No Family Medical History Significant Family History: No Pertinent Family Hx, Hypertension Family Medial History: FH: blindness 19 MOTHER Hypertension 19 FATHER G8 SISTER Physical Exam Vital Signs VS - Last 72 Hours, by Label 12/24/16 12/24/16 14:58 18:20 Temp 98.2 98.2 Pulse 74 74 Resp 16 16 B/P (MAP) 124/72 Pulse Ox 99 99 O2 Delivery Room Air Capillary Refill : Less Than 3 Seconds General Appearance: WD/WN, no apparent distress HEENT: PERRL/EOMI, normal ENT inspection Neck: normal inspection Respiratory: lungs clear, normal breath sounds, no respiratory distress, no accessory muscle use Cardiovascular: regular rate, rhythm, no edema, no murmur Gastrointestinal: normal bowel sounds, soft, tenderness (tenderness in the right lower quadrant with positive Rovsing's, heel strike, and psoas signs) Extremities: normal inspection, no pedal edema Back: normal inspection Neurologic/Psychiatric: cytopathology technologist II-XII nml as tested, no motor/sensory deficits, alert, normal mood/affect, oriented x 3 Skin: normal color, warm/dry Progress/Results/Core Measures Results/Orders Lab Results Laboratory Tests Test 12/24/16 15:15 12/24/16 15:30 Range/Units Urine Color YELLOW Urine Clarity SLIGHTLY CLOUDY Urine pH 6 5-9 Urine Specific [place] 1.015 L 1.016-1.022 Urine Protein NEGATIVE NEGATIVE Urine Glucose (UA) NEGATIVE NEGATIVE Urine Ketones NEGATIVE NEGATIVE Urine Nitrite NEGATIVE NEGATIVE Urine Bilirubin NEGATIVE NEGATIVE Urine Urobilinogen NORMAL NORMAL MG/DL Urine Leukocyte Esterase NEGATIVE NEGATIVE Urine RBC (Auto) 4+ H NEGATIVE Urine RBC 2-5 H /HPF Urine WBC 0-2 /HPF Urine Squamous Epithelial Cells 5-10 /HPF Urine Crystals NONE /LPF Urine Bacteria TRACE /HPF Urine Casts NONE /LPF Urine Mucus NEGATIVE /LPF Urine Culture Indicated NO White Blood Count 12.2 H 4.3-11.0 10^3/uL Red Blood Count 4.25 L 4.35-5.85 10^6/uL Hemoglobin 12.2 11.5-16.0 G/DL Hematocrit 37 35-52 % Mean Corpuscular Volume 86 80-99 FL Mean Corpuscular Hemoglobin 29 25-34 PG Mean Corpuscular Hemoglobin Concent 33 32-36 G/DL Red Cell Distribution Width 13.0 10.0-14.5 % Platelet Count 271 130-400 10^3/uL Mean Platelet Volume 11.2 H 7.4-10.4 FL Neutrophils (%) (Auto) 82 H 42-75 % Lymphocytes (%) (Auto) 14 12-44 % Monocytes (%) (Auto) 4 0-12 % Eosinophils (%) (Auto) 1 0-10 % Basophils (%) (Auto) 0 0-10 % Neutrophils # (Auto) 9.9 H 1.8-7.8 X 10^3 Lymphocytes # (Auto) 1.7 1.0-4.0 X 10^3 Monocytes # (Auto) 0.5 0.0-1.0 X 10^3 Eosinophils # (Auto) 0.1 0.0-0.3 10^3/uL Basophils # (Auto) 0.0 0.0-0.1 10^3/uL Sodium Level 139 135-145 MMOL/L Potassium Level 3.7 3.6-5.0 MMOL/L Chloride Level 107 98-107 MMOL/L Carbon Dioxide Level 24 21-32 MMOL/L Anion Gap 8 5-14 MMOL/L Blood Urea Nitrogen 12 7-18 MG/DL Creatinine 0.86 0.60-1.30 MG/DL Estimat Glomerular Filtration Rate > 60 BUN/Creatinine Ratio 14 Glucose Level 86 70-105 MG/DL Calcium Level 8.9 8.5-10.1 MG/DL Total Bilirubin 0.5 0.1-1.0 MG/DL Aspartate Amino Transf (AST/SGOT) 13 5-34 U/L Alanine Aminotransferase (ALT/SGPT) 9 0-55 U/L Alkaline Phosphatase 77 40-136 U/L Total Protein 7.5 6.4-8.2 GM/DL Albumin 4.2 3.2-4.5 GM/DL Lipase 5 L 8-78 U/L Serum Test, Qualitative NEGATIVE NEGATIVE My Orders Orders - SUKH MIRANDA MD Ua Culture If Indicated (12/24/16 15:00) Cbc With Automated Diff (12/24/16 15:12) Comprehensive Metabolic Panel (12/24/16 15:12) Hcg,Qualitative Serum (12/24/16 15:12) Lipase (12/24/16 15:12) Saline Lock/Iv-Start (12/24/16 15:12) Ondansetron Injection (Zofran Injectio (12/24/16 15:15) Ct Abd/Pelv W (Appendicitis) (12/24/16 16:10) Iohexol Injection (Omnipaque 350 Mg/Ml 1 (12/24/16 16:15) Ns (Ivpb) (Sodium Chloride 0.9% Ivpb Bag (12/24/16 16:15) Pharmacy Communication (Pharmacy Communi (12/24/16 16:11) Ketorolac Injection (Toradol Injection) (12/24/16 17:45) Medications Given in ED Vital Signs/I&O Vital Sign - Last 12Hours 12/24/16 12/24/16 14:58 18:20 Temp 98.2 98.2 Pulse 74 74 Resp 16 16 B/P (MAP) 124/72 Pulse Ox 99 99 O2 Delivery Room Air Blood Pressure Mean: 89 Progress Note : Progress Note Given the presence of mild leukocytosis in context of an exam concerning for peritoneal signs in the right lower quadrant, CT scan was discussed and offered to the patient. Risks and benefits were reviewed. Patient decides to proceed with the CT scan. CT scan revealed no evidence of appendicitis which was the primary concern. She did have a small cyst in the right adnexa which may be a contributor to the pain. Patient's symptoms were treated with Toradol and Zofran. Patient was offered further workup with a pelvic exam. She is not particularly concerned about her vaginal symptoms and declines a pelvic exam stating she will wait until her Monday appointment and request a pelvic exam with her primary care provider if symptoms persist. Departure Impression Impression: Primary Impression: Right lower quadrant pain Additional Impression: Nausea Disposition: HOME, SELF-CARE Condition: Improved Departure-Patient Inst. Decision time for Depature: 17:50 Referrals: ELIECER HOWARD DO (PCP/Family) Primary Care Physician Patient Instructions: Acute Abdomen (Belly Pain), Adult (DC) Add. Discharge Instructions: You may take ibuprofen up to 600 mg every 6 hours as needed for pain. Add Tylenol (acetaminophen) up to 1000 g every 6 hours as needed for additional pain relief. Use the Zofran (ondansetron) as prescribed for nausea and vomiting. Return to care if symptoms worsen. Discuss the potential for pelvic exam with your provider on Monday if symptoms persist. All discharge instructions reviewed with patient and/or family. Voiced understanding. Scripts Ondansetron (Zofran Odt) 4 Mg Tab.rapdis 4 MG SL Q4H, #10 TAB Prov: SUKH MIRANDA MD 12/24/16 SUKH MIRANDA MD Dec 24, 2016 18:04
[2016-12-24] MEDS ORDERED: ONDA4TAB8 SL (18:05)
[2016-12-24 18:20] VITALS: BP 124/72
== END 2016-12-24 18:20 | disposition home or self-care (01) ==
LOC: EDUNIT# 14:27 → ER 14:29
DX: R10.31 Right lower quadrant pain (principal); R11.0 Nausea; Z98.51 Tubal ligation status; Z87.59 Personal history of other complications of pregnancy, childbirth and the puerperium; Z87.448 Personal history of other diseases of urinary system; Z87.440 Personal history of urinary (tract) infections
CPT/HCPCS: 36415; 74177; 80053; 81000; 83690; 84703; 85025

== ENCOUNTER 2018-01-29 09:02 | Outpatient (CLI) | payer MEDICAID ==
[~2018-01-29] VITALS: Ht 165.1 cm; Wt 83.9 kg
[~2018-01-29 09:02] MED LIST changes: -FERR-74 PO; +FERR325T18 PO; +ONDA4TAB8 SL
[2018-01-29 09:14] VITALS: BP 119/68
[2018-01-29 09:47] LABS: BASOPHILS % (AUTO) 0 % (0-10); EOSINOPHILS # (AUTO) 0.1 10^3/uL (0.0-0.3); EOSINOPHILS % (AUTO) 1 % (0-10); HEMATOCRIT 36 % (35-52); HEMOGLOBIN 12.1 G/DL (11.5-16.0); LYMPHOCYTES # (AUTO) 1.6 X 10^3 (1.0-4.0); LYMPHOCYTES % (AUTO) 21 % (12-44); MEAN CORPUSCULAR HEMOGLOBIN 27 PG (25-34); MEAN CORPUSCULAR HGB CONC 33 G/DL (32-36); MEAN CORPUSCULAR VOLUME 82 FL (80-99); MONOCYTES # (AUTO) 0.4 X 10^3 (0.0-1.0); MONOCYTES % (AUTO) 5 % (0-12); NEUTROPHILS # (AUTO) 5.8 X 10^3 (1.8-7.8); NEUTROPHILS % (AUTO) 73 % (42-75); PLATELET COUNT 294 10^3/uL (130-400); RED BLOOD COUNT 4.46 10^6/uL (4.35-5.85); RED CELL DISTRIBUTION WIDTH 14.9 % (10.0-14.5); WHITE BLOOD COUNT 7.9 10^3/uL (4.3-11.0)
[2018-01-31] MEDS ORDERED: OXYC1TAB87 PO (12:55)
[2018-01-31] MEDS ORDERED: IBUP-1780 PO (12:55)
[2018-01-31] MEDS ORDERED: DOCU-143 PO (12:55)
== END 2018-01-29 09:40 | disposition home or self-care (01) ==
LOC: PREOP 09:02
PROVIDERS: ATTEND Obstetrics & Gynecology
DX: Z01.812 Encounter for preprocedural laboratory examination (principal); Z11.2 Encounter for screening for other bacterial diseases; N92.0 Excessive and frequent menstruation with regular cycle; N80.0 Endometriosis of uterus; R10.2 Pelvic and perineal pain; D64.9 Anemia, unspecified
CPT/HCPCS: 36415; 84703; 85025; 87081

== ENCOUNTER 2018-01-31 11:36 | Day surgery (SDC) | payer MEDICAID ==
[~2018-01-31] VITALS: Ht 165.1 cm; Wt 83.9 kg
[2018-01-31 11:35] VITALS: BP 111/67
[2018-01-31] MEDS ORDERED: ceFAZolin INJECTION 1,000 MG in NS (IVPB) 50 ML IV ONE (11:45)
[2018-01-31] MEDS: LACTATED RINGERS 1,000 ML IV PRN ×2 (12:00→13:53)
[2018-01-31] MEDS ORDERED: LIDOCAINE PF 2% 5 ML (XYLOCAINE) VIAL ONE (12:10)
[2018-01-31] MEDS ORDERED: DEXAMETHASONE 10 MG/ML (DECADRON) 1 ML VIAL ONE (12:10)
[2018-01-31] MEDS ORDERED: ROCURONIUM 10 MG/ML 5 ML SYRINGE IV ONE (12:10)
[2018-01-31] MEDS ORDERED: fentaNYL INJECTION 100 MCG/2 ML AMP ONE (12:10)
[2018-01-31] MEDS ORDERED: SEVOFLURANE (ULTANE) 15 ML INHAL SOLN ONE (12:10)
[2018-01-31] MEDS ORDERED: MIDAZOLAM 2 MG/2 ML (VERSED) VIAL ONE (12:10)
[2018-01-31] MEDS ORDERED: ONDANSETRON 4 MG/2 ML (SDV) Z0FRAN ONE ×2 (12:10→14:42)
[2018-01-31] MEDS ORDERED: proPOfol 200 MG/20 ML (DIPRIVAN) VIAL IV ONE (12:10)
[2018-01-31] MEDS ORDERED: BUP/EPI 0.5% 1:200,000 (SENSORCAINE) 30 ML VIAL ONE (12:12)
--- NOTE | 2018-01-31 12:50 | Progress Note-Pre Operative ---
Pre-Operative Progress Note H&P Reviewed The H&P was reviewed, patient examined and no changes noted. Date Seen by Provider: Jan 31, 2018 Time Seen by Provider: 12:49 Date H&P Reviewed: Jan 31, 2018 Time H&P Reviewed: 12:49 Pre-Operative Diagnosis: Dysfunctional uterine bleeding/menorrhagia/chronic pelvic pain/endometriosi YUNIEL CABRERA MD Jan 31, 2018 12:50 pm
[2018-01-31] MEDS ORDERED: D5 LR IV SOLUTION 1,000 ML IV SCH (12:51)
--- NOTE | 2018-01-31 12:51 | Progress Note-Post Operative ---
Post-Operative Progess Note Surgeon (s)/Cytotechnologist/Cytology Supervisor (s) Surgeon YUNIEL CABRERA MD Cytotechnologist/Cytology Supervisor: Caro Carranza Pre-Operative Diagnosis Dysfunctional uterine bleeding/menorrhagia/chronic pelvic pain/endometriosi Post-Operative Diagnosis Same with clinical impression of appendicitis/abnormal appendix and with pathology pending Procedure & Operative Findings Date of Procedure 01/31/18 Procedure Performed/Findings TLH/RS/LSO/laparoscopic appendectomy Anesthesia Type GETA Estimated Blood Loss Estimated blood loss (mL): Minimal Specimens/Packing Specimens Removed Uterus both fallopian tubes/left ovary/appendix Packing: None YUNIEL CABRERA MD Jan 31, 2018 12:51
[2018-01-31] MEDS ORDERED: IBUP-1780 PO (12:55)
[2018-01-31] MEDS ORDERED: DOCU-143 PO (12:55)
[2018-01-31] MEDS ORDERED: OXYC1TAB87 PO (12:55)
--- NOTE | 2018-01-31 12:56 | Discharge Instructions ---
Discharge Instructions Discharge Medications New, Converted or Re-Newed RX: RX on Chart Patient Instructions Patient Instructions: As directed Return to The Hospital For: DIRECTED Activity & Diet Discharge Diet: No Restrictions Activity as Tolerated: No Orders-Post D/C & Referrals Follow Up Appt: Return to clinic on Monday, February 02, 2018 at 930 a.m. for staple removal Call to make follow up appt. for patient in 4 weeks. Activity: Rest for 24 hours, than as tolerated. Wound Care: May remove Band-Aid tomorrow. Replace as desired. Keep incisions clean and dry. Wash daily with soap and water. Please call in RX to patient pharmacy. Diet: As tolerated-Clear Liquids only if nauseated. Tomorrow, may shower or tub bathe as desired. No driving for 24 hours, no alcoholic beverages for 24 hours, and nothing per vagina (no tampons, douching, or intercourse) for 8 weeks. Patient to return to the clinic as soon as possible for: Temperature greater than 101F, Severe Pain, Foul discharge from incision or vagina, Excessive Bleeding (more than a period). YUNIEL CABRERA MD Jan 31, 2018 12:56 pm
[2018-01-31] MEDS ORDERED: KETOROLAC 30 MG/ML VIAL IVP SCH (13:00)
[2018-01-31] MEDS ORDERED: oxyCODONE/APAP 5/325MG (PERCOCET 5) TABLET PO PRN (13:00)
[2018-01-31] MEDS ORDERED: MEPERIDINE (DEMEROL) INJ 100 MG/ML IM PRN (13:00)
[2018-01-31] MEDS ORDERED: PROMETHAZINE INJ 25 MG/ML (PHENERGAN) AMP IM PRN (13:00)
[2018-01-31] MEDS ORDERED: ONDANSETRON 4 MG/2 ML (SDV) Z0FRAN IVP PRN ×2 (13:00→14:45)
[2018-01-31] MEDS ORDERED: BENZOCAINE/MENTHOL (DERMOPLAST) 56 ML CAN TP PRN (13:00)
[2018-01-31] MEDS ORDERED: KETOROLAC 30 MG/ML VIAL ONE (14:10)
[2018-01-31] MEDS ORDERED: GLYCOPYRROLATE 0.2 MG/ML (ROBINUL) 2 ML VIAL ONE (14:28)
[2018-01-31] MEDS ORDERED: NEOSTIGMINE 1 MG/ML 5 ML SYRINGE ONE (14:28)
[2018-01-31] MEDS ORDERED: morphine INJ 10 MG/ML 1ML (SYR OR VIAL) ONE (14:42)
--- NOTE | 2018-01-31 14:44 | Anesthesia-General Post-Op ---
General Patient Condition Mental Status/LOC: Same as Preop Cardiovascular: Satisfactory Nausea/Vomiting: Absent Respiratory: Satisfactory Pain: Controlled Complications: Absent Post Op Complications Complications None Follow Up Care/Instructions Patient Instructions None needed. Anesthesia/Patient Condition Patient Condition Patient is doing well, no complaints, stable vital signs, no apparent adverse anesthesia problems. No complications reported per nursing. NEWTON ROONEY CRNA Jan 31, 2018 14:44
[2018-01-31] MEDS ORDERED: morphine INJ 10 MG/ML 1ML (SYR OR VIAL) IVP ONE (14:45)
[2018-01-31] MEDS ORDERED: HYDROmorphone 2 MG/ML VIAL (DILAUDID) IV ONE (14:45)
[2018-01-31] MEDS ORDERED: HYDROmorphone 2 MG/ML VIAL (DILAUDID) ONE (15:08)
[2018-01-31 15:38] VITALS: BP 102/63
--- OUTSIDE RECORDS SUMMARY | 2018-01-31 15:47 | XMS REPORT | Continuity of Care Document ---
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 NEGATIVE Erythrocytes detection in urine sediment by light microscopy 2+ NEGATIVE Urine ketones detection by automated test strip NEGATIVE NEGATIVE Urine nitrite detection by test strip POSITIVE NEGATIVE Urine total bilirubin detection by test strip NEGATIVE NEGATIVE Urine urobilinogen measurement by automated test strip (mass/volume) NORMAL NORMAL Urine leukocyte esterase detection by dipstick 3+ NEGATIVE Automated urine sediment erythrocyte count by microscopy (number/high power field) RARE NRG Automated urine sediment leukocyte count by microscopy (number/high power field ) [HPF] NRG Bacteria detection in urine sediment by light microscopy LARGE NRG Squamous epithelial cells detection in urine sediment by light microscopy 5-10 NRG Crystals detection in urine sediment by light microscopy NONE NRG Casts detection in urine sediment by light microscopy NONE NRG Mucus detection in urine sediment by light microscopy NEGATIVE NRG Complete urinalysis with reflex to culture YES NRG Bacterial urine culture - 08/24/16 12:50 Bacterial urine culture [id number] NRG COLONY COUNT >100,000/ML NR Bacterial susceptibility panel - 08/24/16 12:50 Gentamicin susceptibility test by minimum inhibitory concentration < = NRG Trimethoprim/sulfamethoxazole susceptibility test by minimum inhibitoryconcentration <= NRG Ampicillin susceptibility test by minimum inhibitory concentration > = NRG Tobramycin susceptibility test by minimum inhibitory concentration < = NRG Cefazolin susceptibility test by minimum inhibitory concentration < = NRG Ceftriaxone susceptibility test by minimum inhibitory concentration <= NRG Ampicillin/sulbactam susceptibility test by minimum inhibitory concentration >= NRG Piperacillin/tazobactam susceptibility test by minimum inhibitory concentration <= NRG Ciprofloxacin susceptibility test by minimum inhibitory concentration <= NRG Meropenem susceptibility test by minimum inhibitory concentration < = NRG Nitrofurantoin susceptibility test by minimum inhibitory concentration <= NRG Aztreonam susceptibility test by minimum inhibitory concentration < = NRG Extended spectrum beta lactamase (ESBL) producing bacteria susceptibility test by minimum inhibitory concentration - NR Complete blood count (CBC) with automated white blood cell (WBC) differential - 08/25/16 09:43 Blood leukocytes automated count (number/volume) 8.3 10*3/uL 4.3-11.0 Blood erythrocytes automated count (number/volume) 3.42 10*6/uL 4.35-5.85 Venous blood hemoglobin measurement (mass/volume) 8.7 g/dL 11.5-16.0 Blood hematocrit (volume fraction) 28 % 35-52 Automated erythrocyte mean corpuscular volume 81 [foz_us] 80-99 Automated erythrocyte mean corpuscular hemoglobin (mass per erythrocyte) 25 pg 25-34 Automated erythrocyte mean corpuscular hemoglobin concentration measurement ( mass/volume) 32 g/dL 32-36 Automated erythrocyte distribution width ratio 16.0 % 10.0-14.5 Automated blood platelet count (count/volume) 155 10*3/uL 130-400 Automated blood platelet mean volume measurement 11.1 [foz_us] 7.4-10.4 Automated blood neutrophils/100 leukocytes 88 % 42-75 Automated blood lymphocytes/100 leukocytes 8 % 12-44 Blood monocytes/100 leukocytes 4 % 0-12 Automated blood eosinophils/100 leukocytes 0 % 0-10 Automated blood basophils/100 leukocytes 0 % 0-10 Blood neutrophils automated count (number/volume) 7.3 10*3 1.8-7.8 Blood lymphocytes automated count (number/volume) 0.7 10*3 1.0-4.0 Blood monocytes automated count (number/volume) 0.3 10*3 0.0-1.0 Automated eosinophil count 0.0 10*3/uL 0.0-0.3 Automated blood basophil count (count/volume) 0.0 10*3/uL 0.0-0.1 Comprehensive metabolic panel - 08/25/16 09:43 Serum or plasma sodium measurement (moles/volume) 138 mmol/L 135-145 Serum or plasma potassium measurement (moles/volume) 3.1 mmol/L 3.6-5.0 Serum or plasma chloride measurement (moles/volume) 113 mmol/L 98-107 Carbon dioxide 21 mmol/L 21-32 Serum or plasma anion gap determination (moles/volume) 4 mmol/L 5-14 Serum or plasma urea nitrogen measurement (mass/volume) 11 mg/dL 7-18 Serum or plasma creatinine measurement (mass/volume) 0.78 mg/dL 0.60-1.30 Serum or plasma urea nitrogen/creatinine mass ratio 14 NRG Serum or plasma creatinine measurement with calculation of estimated glomerular filtration rate > NRG Serum or plasma glucose measurement (mass/volume) 119 mg/dL 70-105 Serum or plasma calcium measurement (mass/volume) 7.5 mg/dL 8.5-10.1 Serum or plasma total bilirubin measurement (mass/volume) 0.5 mg/dL 0.1-1.0 Serum or plasma alkaline phosphatase measurement (enzymatic activity/volume) 54 U/L 40-136 Serum or plasma aspartate aminotransferase measurement (enzymatic activity/ volume) 12 U/L 5-34 Serum or plasma alanine aminotransferase measurement (enzymatic activity/volume ) 11 U/L 0-55 Serum or plasma protein measurement (mass/volume) 5.7 g/dL 6.4-8.2 Serum or plasma albumin measurement (mass/volume) 3.1 g/dL 3.2-4.5 IRON TEST - 08/25/16 09:43 Serum or plasma iron measurement (mass/volume) < % 35- 180 Complete blood count (CBC) with automated white blood cell (WBC) differential - 08/26/16 04:42 Blood leukocytes automated count (number/volume) 8.2 10*3/uL 4.3-11.0 Blood erythrocytes automated count (number/volume) 3.25 10*6/uL 4.35-5.85 Venous blood hemoglobin measurement (mass/volume) 8.2 g/dL 11.5-16.0 Blood hematocrit (volume fraction) 26 % 35-52 Automated erythrocyte mean corpuscular volume 80 [foz_us] 80-99 Automated erythrocyte mean corpuscular hemoglobin (mass per erythrocyte) 25 pg 25-34 Automated erythrocyte mean corpuscular hemoglobin concentration measurement ( mass/volume) 31 g/dL 32-36 Automated erythrocyte distribution width ratio 15.9 % 10.0-14.5 Automated blood platelet count (count/volume) 153 10*3/uL 130-400 Automated blood platelet mean volume measurement 12.1 [foz_us] 7.4-10.4 Automated blood neutrophils/100 leukocytes 74 % 42-75 Automated blood lymphocytes/100 leukocytes 19 % 12-44 Blood monocytes/100 leukocytes 7 % 0-12 Automated blood eosinophils/100 leukocytes 1 % 0-10 Automated blood basophils/100 leukocytes 0 % 0-10 Blood neutrophils automated count (number/volume) 6.0 10*3 1.8-7.8 Blood lymphocytes automated count (number/volume) 1.5 10*3 1.0-4.0 Blood monocytes automated count (number/volume) 0.6 10*3 0.0-1.0 Automated eosinophil count 0.0 10*3/uL 0.0-0.3 Automated blood basophil count (count/volume) 0.0 10*3/uL 0.0-0.1 Complete blood count (CBC) with automated white blood cell (WBC) differential - 08/27/16 05:10 Blood leukocytes automated count (number/volume) 6.5 10*3/uL 4.3-11.0 Blood erythrocytes automated count (number/volume) 3.34 10*6/uL 4.35-5.85 Venous blood hemoglobin measurement (mass/volume) 8.3 g/dL 11.5-16.0 Blood hematocrit (volume fraction) 27 % 35-52 Automated erythrocyte mean corpuscular volume 80 [foz_us] 80-99 Automated erythrocyte mean corpuscular hemoglobin (mass per erythrocyte) 25 pg 25-34 Automated erythrocyte mean corpuscular hemoglobin concentration measurement ( mass/volume) 31 g/dL 32-36 Automated erythrocyte distribution width ratio 15.6 % 10.0-14.5 Automated blood platelet count (count/volume) 191 10*3/uL 130-400 Automated blood platelet mean volume measurement 12.3 [foz_us] 7.4-10.4 Automated blood neutrophils/100 leukocytes 74 % 42-75 Automated blood lymphocytes/100 leukocytes 19 % 12-44 Blood monocytes/100 leukocytes 6 % 0-12 Automated blood eosinophils/100 leukocytes 1 % 0-10 Automated blood basophils/100 leukocytes 0 % 0-10 Blood neutrophils automated count (number/volume) 4.8 10*3 1.8-7.8 Blood lymphocytes automated count (number/volume) 1.2 10*3 1.0-4.0 Blood monocytes automated count (number/volume) 0.4 10*3 0.0-1.0 Automated eosinophil count 0.1 10*3/uL 0.0-0.3 Automated blood basophil count (count/volume) 0.0 10*3/uL 0.0-0.1 Comprehensive metabolic panel - 08/27/16 05:10 Serum or plasma sodium measurement (moles/volume) 139 mmol/L 135-145 Serum or plasma potassium measurement (moles/volume) 3.2 mmol/L 3.6-5.0 Serum or plasma chloride measurement (moles/volume) 110 mmol/L 98-107 Carbon dioxide 20 mmol/L 21-32 Serum or plasma anion gap determination (moles/volume) 9 mmol/L 5-14 Serum or plasma urea nitrogen measurement (mass/volume) 5 mg/dL 7-18 Serum or plasma creatinine measurement (mass/volume) 0.74 mg/dL 0.60-1.30 Serum or plasma urea nitrogen/creatinine mass ratio 7 NRG Serum or plasma creatinine measurement with calculation of estimated glomerular filtration rate > NRG Serum or plasma glucose measurement (mass/volume) 99 mg/dL 70-105 Serum or plasma calcium measurement (mass/volume) 8.1 mg/dL 8.5-10.1 Serum or plasma total bilirubin measurement (mass/volume) 0.3 mg/dL 0.1-1.0 Serum or plasma alkaline phosphatase measurement (enzymatic activity/volume) 84 U/L 40-136 Serum or plasma aspartate aminotransferase measurement (enzymatic activity/ volume) 18 U/L 5-34 Serum or plasma alanine aminotransferase measurement (enzymatic activity/volume ) 18 U/L 0-55 Serum or plasma protein measurement (mass/volume) 5.9 g/dL 6.4-8.2 Serum or plasma albumin measurement (mass/volume) 3.4 g/dL 3.2-4.5 Complete blood count (CBC) with automated white blood cell (WBC) differential - 08/30/16 20:28 Blood leukocytes automated count (number/volume) 10.7 10*3/uL 4.3-11.0 Blood erythrocytes automated count (number/volume) 4.13 10*6/uL 4.35-5.85 Venous blood hemoglobin measurement (mass/volume) 10.5 g/dL 11.5-16.0 Blood hematocrit (volume fraction) 33 % 35-52 Automated erythrocyte mean corpuscular volume 79 [foz_us] 80-99 Automated erythrocyte mean corpuscular hemoglobin (mass per erythrocyte) 25 pg 25-34 Automated erythrocyte mean corpuscular hemoglobin concentration measurement ( mass/volume) 32 g/dL 32-36 Automated erythrocyte distribution width ratio 15.9 % 10.0-14.5 Automated blood platelet count (count/volume) 383 10*3/uL 130-400 Automated blood platelet mean volume measurement 10.4 [foz_us] 7.4-10.4 Automated blood neutrophils/100 leukocytes 74 % 42-75 Automated blood lymphocytes/100 leukocytes 19 % 12-44 Blood monocytes/100 leukocytes 7 % 0-12 Automated blood eosinophils/100 leukocytes 0 % 0-10 Automated blood basophils/100 leukocytes 0 % 0-10 Blood neutrophils automated count (number/volume) 7.9 10*3 1.8-7.8 Blood lymphocytes automated count (number/volume) 2.1 10*3 1.0-4.0 Blood monocytes automated count (number/volume) 0.7 10*3 0.0-1.0 Automated eosinophil count 0.0 10*3/uL 0.0-0.3 Automated blood basophil count (count/volume) 0.0 10*3/uL 0.0-0.1 Comprehensive metabolic panel - 08/30/16 20:28 Serum or plasma sodium measurement (moles/volume) 138 mmol/L 135-145 Serum or plasma potassium measurement (moles/volume) 3.7 mmol/L 3.6-5.0 Serum or plasma chloride measurement (moles/volume) 103 mmol/L 98-107 Carbon dioxide 22 mmol/L 21-32 Serum or plasma anion gap determination (moles/volume) 13 mmol/L 5-14 Serum or plasma urea nitrogen measurement (mass/volume) 11 mg/dL 7-18 Serum or plasma creatinine measurement (mass/volume) 0.80 mg/dL 0.60-1.30 Serum or plasma urea nitrogen/creatinine mass ratio 14 0 -20 Serum or plasma creatinine measurement with calculation of estimated glomerular filtration rate > NRG Serum or plasma glucose measurement (mass/volume) 94 mg/dL 70-105 Serum or plasma calcium measurement (mass/volume) 9.0 mg/dL 8.5-10.1 Serum or plasma total bilirubin measurement (mass/volume) 0.6 mg/dL 0.1-1.0 Serum or plasma alkaline phosphatase measurement (enzymatic activity/volume) 80 U/L 40-136 Serum or plasma aspartate aminotransferase measurement (enzymatic activity/ volume) 8 U/L 5-34 Serum or plasma alanine aminotransferase measurement (enzymatic activity/volume ) 12 U/L 0-55 Serum or plasma protein measurement (mass/volume) 7.3 g/dL 6.4-8.2 Serum or plasma albumin measurement (mass/volume) 4.1 g/dL 3.2-4.5 Complete urinalysis with reflex to culture - 12/24/16 15:15 Urine color determination YELLOW NRG Urine clarity determination SLIGHTLY CLOUDY NRG Urine pH measurement by test strip 6 5-9 Specific gravity of urine by test strip 1.015 1.016- 1.022 Urine protein assay by test strip, semi-quantitative NEGATIVE NEGATIVE Urine glucose detection by automated test strip NEGATIVE NEGATIVE Erythrocytes detection in urine sediment by light microscopy 4+ NEGATIVE Urine ketones detection by automated test strip NEGATIVE NEGATIVE Urine nitrite detection by test strip NEGATIVE NEGATIVE Urine total bilirubin detection by test strip NEGATIVE NEGATIVE Urine urobilinogen measurement by automated test strip (mass/volume) NORMAL NORMAL Urine leukocyte esterase detection by dipstick NEGATIVE NEGATIVE Automated urine sediment erythrocyte count by microscopy (number/high power field) [HPF] NRG Automated urine sediment leukocyte count by microscopy (number/high power field ) [HPF] NRG Bacteria detection in urine sediment by light microscopy TRACE NRG Squamous epithelial cells detection in urine sediment by light microscopy 5-10 NRG Crystals detection in urine sediment by light microscopy NONE NRG Casts detection in urine sediment by light microscopy NONE NRG Mucus detection in urine sediment by light microscopy NEGATIVE NRG Complete urinalysis with reflex to culture NO NRG Complete blood count (CBC) with automated white blood cell (WBC) differential - 12/24/16 15:30 Blood leukocytes automated count (number/volume) 12.2 10*3/uL 4.3-11.0 Blood erythrocytes automated count (number/volume) 4.25 10*6/uL 4.35-5.85 Venous blood hemoglobin measurement (mass/volume) 12.2 g/dL 11.5-16.0 Blood hematocrit (volume fraction) 37 % 35-52 Automated erythrocyte mean corpuscular volume 86 [foz_us] 80-99 Automated erythrocyte mean corpuscular hemoglobin (mass per erythrocyte) 29 pg 25-34 Automated erythrocyte mean corpuscular hemoglobin concentration measurement ( mass/volume) 33 g/dL 32-36 Automated erythrocyte distribution width ratio 13.0 % 10.0-14.5 Automated blood platelet count (count/volume) 271 10*3/uL 130-400 Automated blood platelet mean volume measurement 11.2 [foz_us] 7.4-10.4 Automated blood neutrophils/100 leukocytes 82 % 42-75 Automated blood lymphocytes/100 leukocytes 14 % 12-44 Blood monocytes/100 leukocytes 4 % 0-12 Automated blood eosinophils/100 leukocytes 1 % 0-10 Automated blood basophils/100 leukocytes 0 % 0-10 Blood neutrophils automated count (number/volume) 9.9 10*3 1.8-7.8 Blood lymphocytes automated count (number/volume) 1.7 10*3 1.0-4.0 Blood monocytes automated count (number/volume) 0.5 10*3 0.0-1.0 Automated eosinophil count 0.1 10*3/uL 0.0-0.3 Automated blood basophil count (count/volume) 0.0 10*3/uL 0.0-0.1 Serum or plasma choriogonadotropin ( test) detection - 12/24/16 15:30 Serum or plasma choriogonadotropin ( test) detection NEGATIVE NEGATIVE Comprehensive metabolic panel - 12/24/16 15:30 Serum or plasma sodium measurement (moles/volume) 139 mmol/L 135-145 Serum or plasma potassium measurement (moles/volume) 3.7 mmol/L 3.6-5.0 Serum or plasma chloride measurement (moles/volume) 107 mmol/L 98-107 Carbon dioxide 24 mmol/L 21-32 Serum or plasma anion gap determination (moles/volume) 8 mmol/L 5-14 Serum or plasma urea nitrogen measurement (mass/volume) 12 mg/dL 7-18 Serum or plasma creatinine measurement (mass/volume) 0.86 mg/dL 0.60-1.30 Serum or plasma urea nitrogen/creatinine mass ratio 14 NRG Serum or plasma creatinine measurement with calculation of estimated glomerular filtration rate > NRG Serum or plasma glucose measurement (mass/volume) 86 mg/dL 70-105 Serum or plasma calcium measurement (mass/volume) 8.9 mg/dL 8.5-10.1 Serum or plasma total bilirubin measurement (mass/volume) 0.5 mg/dL 0.1-1.0 Serum or plasma alkaline phosphatase measurement (enzymatic activity/volume) 77 U/L 40-136 Serum or plasma aspartate aminotransferase measurement (enzymatic activity/ volume) 13 U/L 5-34 Serum or plasma alanine aminotransferase measurement (enzymatic activity/volume ) 9 U/L 0-55 Serum or plasma protein measurement (mass/volume) 7.5 g/dL 6.4-8.2 Serum or plasma albumin measurement (mass/volume) 4.2 g/dL 3.2-4.5 Lipase - 12/24/16 15:30 Lipase 5 U/L 8-78 Methicillin resistant Staphylococcus aureus (MRSA) screening culture - 09:23 Methicillin resistant Staphylococcus aureus (MRSA) screening culture NEG NRG Urine beta human chorionic gonadotropin (hCG) measurement - 01/29/18 09:28 Urine beta human chorionic gonadotropin (hCG) measurement NEGATIVE NEGATIVE Complete blood count (CBC) with automated white blood cell (WBC) differential - 01/29/18 09:28 Blood leukocytes automated count (number/volume) 7.9 10*3/uL 4.3-11.0 Blood erythrocytes automated count (number/volume) 4.46 10*6/uL 4.35-5.85 Venous blood hemoglobin measurement (mass/volume) 12.1 g/dL 11.5-16.0 Blood hematocrit (volume fraction) 36 % 35-52 Automated erythrocyte mean corpuscular volume 82 [foz_us] 80-99 Automated erythrocyte mean corpuscular hemoglobin (mass per erythrocyte) 27 pg 25-34 Automated erythrocyte mean corpuscular hemoglobin concentration measurement ( mass/volume) 33 g/dL 32-36 Automated erythrocyte distribution width ratio 14.9 % 10.0-14.5 Automated blood platelet count (count/volume) 294 10*3/uL 130-400 Automated blood platelet mean volume measurement 11.0 [foz_us] 7.4-10.4 Automated blood neutrophils/100 leukocytes 73 % 42-75 Automated blood lymphocytes/100 leukocytes 21 % 12-44 Blood monocytes/100 leukocytes 5 % 0-12 Automated blood eosinophils/100 leukocytes 1 % 0-10 Automated blood basophils/100 leukocytes 0 % 0-10 Blood neutrophils automated count (number/volume) 5.8 10*3 1.8-7.8 Blood lymphocytes automated count (number/volume) 1.6 10*3 1.0-4.0 Blood monocytes automated count (number/volume) 0.4 10*3 0.0-1.0 Automated eosinophil count 0.1 10*3/uL 0.0-0.3 Automated blood basophil count (count/volume) 0.0 10*3/uL 0.0-0.1 Blood type T Indirect antibody screen panel - 01/29/18 09:28 ABO+Rh group OP NRG Transfusion band number [id number] NRG Blood group antibody screen NEGATIVE NRG Encounters ACCT No. Visit Date/Time Discharge Status Pt. Type Provider Facility Loc./Unit Complaint [id number] 08/10/2013 10:49:00 08/10/2013 23:59:59 CLS Outpatient GRECIA ROSALES APRN Cristiano [id number] 05/29/2013 10:50:00 05/29/2013 23:59:59 CLS Outpatient CARLA ARREGUIN DO [id number] 04/01/2013 15:18:00 04/01/2013 23:59:59 CLS Outpatient CARLA ARREGUIN DO [id number] 03/02/2013 10:01:00 03/02/2013 23:59:59 CLS Outpatient CARLA ARREGUIN DO [id number] 01/02/2013 11:30:00 01/02/2013 23:59:59 CLS Outpatient ROBERT LUJAN APRNSOLA Mitchell [id number] 05/30/2012 11:51:00 05/30/2012 23:59:59 CLS Outpatient [id number] 11/21/2012 15:13:00 Document Registration [id number] 08/13/2014 05:00:34 ACT Document Registration [id number] 01/29/2018 09:02:00 01/29/2018 09:40:00 DIS Outpatient DEBORAH URENA, YUNIEL Arzola [facility] PREOP DYSFUNCTIONAL UTERINE BLEEDING,CHRONIC PELVIC PAIN [id number] 12/24/2016 14:29:00 12/24/2016 18:20:00 DIS Emergency SUKH MIRANDA MD [facility] ER LOWER ABD SHARP PAIN, NAUSEA [id number] 08/30/2016 19:44:00 08/30/2016 21:39:00 DIS Emergency SHERRIE RAMIREZ DO [facility] ER RT ARM SWELLING AFTER IV WAS REMOVED YESTERDAY [id number] 08/24/2016 13:36:00 08/29/2016 12:20:00 DIS Inpatient AMANDA DAVIS MD [facility] 4TH SEPSIS UTI [id number] 06/02/2016 21:45:00 06/02/2016 23:26:00 DIS Emergency ELISABETH URENA, JESUS Lisha [facility] ER BUG BITE ON ELBOW [id number] 05/17/2016 09:59:00 05/17/2016 11:45:00 DIS Emergency SE ZURITA APRN [facility] ER FLU/UTI SYMPTOMS SYNCOPAL EPISODE [id number] 04/17/2016 22:38:00 04/20/2016 11:25:00 DIS Inpatient YUNIEL CABRERA MD [facility] LDRP POSS WATER BREAK, CONTRACTIONS [id number] 02/26/2016 16:41:00 02/26/2016 17:45:00 DIS Outpatient YUNIEL CABRERA MD [facility] CRAMPING, BACK HURT [id number] 05/21/2015 17:34:00 05/21/2015 18:57:00 DIS Emergency SE ZURITA APRN [facility] ER BACK PAIN [id number] 02/14/2015 03:31:00 02/17/2015 12:35:00 DIS Inpatient ARREGUIN DO, CARLA K [facility] LDRP LABOR,PRIMARY [id number] 02/02/2015 22:02:00 02/02/2015 23:47:00 DIS Outpatient JAIMEE ARIAS MD [facility] [id number] 10/18/2014 15:08:00 10/18/2014 16:23:00 DIS Outpatient JAIMEE ARIAS MD [facility] [id number] 10/10/2014 10:11:00 10/10/2014 23:59:59 CLS Outpatient JAIMEE ARIAS MD [facility] RAD [id number] 08/12/2014 09:46:00 08/12/2014 23:59:59 CLS Outpatient JAIMEE ARIAS MD [facility] RAD [id number] 01/31/2018 13:00:00 PEN Preadmit YUNIEL CABRERA MD [facility] SDC DYSFUNCTIONAL UTERINE BLEEDING, CHRONIC PELVIC PAIN
[2018-01-31] MEDS ORDERED: PROMETHAZINE INJ 25 MG/ML (PHENERGAN) AMP ONE (16:09)
[2018-01-31] MEDS ORDERED: MEPERIDINE (DEMEROL) INJ 100 MG/ML ONE (16:09)
[2018-01-31 17:31] VITALS: BP 97/60
[2018-01-31] MEDS ORDERED: IBUPROFEN 800 MG (MOTRIN) TAB PO ONE (19:45)
[2018-01-31 19:51] VITALS: BP 112/63
--- NOTE | 2018-01-31 23:19 | OPERATIVE REPORT ---
DATE OF SERVICE: 01/31/2018 PREOPERATIVE DIAGNOSES: Dysfunctional uterine bleeding, menorrhagia, dysmenorrhea, history of endometriosis. POSTOPERATIVE DIAGNOSES: Dysfunctional uterine bleeding, menorrhagia, dysmenorrhea, history of endometriosis with appendicitis. OPERATIVE PROCEDURE: Total laparoscopic hysterectomy with bilateral salpingectomy, left oophorectomy and appendectomy. OPERATIVE DESCRIPTION: With the patient in the supine position under satisfactory general anesthesia, she was repositioned in the dorsal lithotomy position in the [facility] and prepped and draped in usual fashion for abdominal and vaginal surgery using robotic assistance. The weighted speculum placed in posterior fornix of vagina, cervix exposed and grasped anteriorly with single tooth tenaculum. Uterus was sounded to 12 cm with uterine sound. The cervix was then serially dilated with Manjinder dilators to accommodate a Shanti II manipulator, which was placed using 25 mm colpotomy ring and a 6 mm x 8 cm uterine probe. Sutures of #1 Vicryl placed at 3 and 9 o'clock position of the cervix and affixed to the manipulator. Gale catheter was placed in the urinary bladder and left to dependent drainage. The patient brought in low dorsal lithotomy position. A 12 mm incision made just superior to the umbilicus. Veress needle placed through that incision into the abdominal cavity. Correct placement was confirmed with water drop test. The abdomen was insufflated to 2.4 liters of carbon dioxide and the Veress needle was removed and a 12 mm Optiview laparoscopic port placed. The abdominal wall was transilluminated and ports of 8 mm were placed through incisions of those sizes 9 cm lateral to the umbilicus on each side. All three incision sites had been infiltrated with 0.25% Marcaine with epinephrine prior to incision. The patient was now placed in Trendelenburg allowing the bowel to spill out of the pelvis. The da Ivan column was advanced on to the patient and docked and then operative instruments were placed in right and left lateral ports and I retired to the console. On the console using a vessel sealer on the right and a bipolar fenestrated grasper on the left, the pelvis was first examined. There was endometriosis more so on the left than on the right were taken in the ovarian fossa and on the left ovary. Both fallopian tubes showed evidence of remote tubal sterilization. The appendix was injected and erythematous and swollen nodular in appearance consistent with some degree of acute and/or chronic appendicitis. Decision was made to go ahead with appendectomy concurrent with the rest of the procedure. Decision was made to conserve the right ovary as had been discussed with this patient prior to the surgery. The right fallopian tube was grasped and elevated. The vessel sealer was used to clamp, cauterize and divide the mesosalpinx across to the uteroovarian pedicle, which was clamped, cauterized and divided the ovary from the uterus that process was continued across the round ligament, across the broad ligaments and down on to the cardinal ligament on the right and then the same procedure was performed on the left, although it was carried across the mesovarium to allow for removal of the left tube and ovary. The anterior lower uterine segment peritoneum was exposed and then the vessel sealer was replaced with a monopolar shear. The peritoneum above the bladder was divided. Careful dissection was undertaken to free the bladder from its slight adhesions from her previous surgery and then with the bladder well down off of the lower uterine segment and off of the fold of the vagina at the cervix. A colpotomy incision made at the 12 o'clock position. A colpotomy incision was made onto the colpotomy ring and the ring was exposed by dissecting completely around circumferentially until the entire ring was exposed and then the uterus with the right tube and ovary still attached and the left ovary still attached was removed through the vagina. The vaginal cuff was closed with two sutures of V-Loc barbed suture starting first on the right angle and continuing across to the left and then the cuff starting from the left and coming back. The uterine vessels were included in the pedicles to ensure hemostasis. The bladder peritoneum was brought back up into the pelvis with the second suture and then the right ovary was supported on to the pedicle of the right round ligament to keep it up out of the pelvis. Hemostasis was complete. Both ureters were seemed to peristalse before, during and after this point in the procedure. Attention was now turned to the appendix. The monopolar shear was used on the right and a bipolar fenestrated grasper on the left, the appendix was grasped and elevated. The mesoappendix was divided over to the base of the appendix. There were some adhesions of the appendix to pelvic brim. These were taken down with very careful and meticulous dissection. There was one vessel. The appendiceal vessel in the mesoappendix that was cauterized to ensure hemostasis and then the Endo GI was placed across. At this point, the robotic portion of the procedure was halted and fiber conventional laparoscopy. The da Ivan robot instruments were removed. The was removed from the patient and then using a 5 mm scope in the right lateral grasper in the left port and a stapler in the midline port, the appendix was grasped and elevated. The Endo GI was placed across the base of the appendix and fired. The appendix was then placed in an Endobag and brought out through the midline incision. The stump of the appendix was copiously irrigated and treated with several drops of Betadine solution and then the pelvis was irrigated and examined again for hemostasis and abnormal pathology none being found and hemostasis completed. The procedure was terminated. The operative instruments removed under direct vision as were the ports. The abdomen was evacuated in the process of removing the ports. The skin incisions were stapled after first closing the fascia at the supraumbilical incision with [id number] suture of 2-0 Vicryl. Speculum was replaced in the vagina. Vaginal cuff was examined and found completely hemostatic and completely reapproximated. Sponge and needle counts were correct on completion of the procedure. Estimated blood loss was minimal. The patient tolerated the procedure well and was transferred to recovery in stable condition. Job ID: [id number] DocumentID: [id number] Dictated Date: 01/31/2018 14:21:09 Log Snaker Date: 01/31/2018 23:19:20 Dictated By: YUNIEL CABRERA MD
[2018-02-01] MEDS ORDERED: DOCUSATE SODIUM 100 MG (COLACE) CAP PO SCH (09:00)
[2018-02-01] MEDS ORDERED: IBUPROFEN 800 MG (MOTRIN) TAB PO SCH (13:00)
--- NOTE | 2018-02-01 13:53 | Anesthesia-General Post-Op ---
General Patient Condition Mental Status/LOC: Same as Preop Cardiovascular: Satisfactory Nausea/Vomiting: Absent Respiratory: Satisfactory Pain: Controlled Complications: Absent Post Op Complications Complications None Follow Up Care/Instructions Patient Instructions None needed. Anesthesia/Patient Condition Patient Condition Patient is doing well, no complaints, stable vital signs, no apparent adverse anesthesia problems. No complications reported per nursing. SANTA NG CRNA Feb 01, 2018 13:53
== END 2018-01-31 22:05 | disposition home or self-care (01) ==
LOC: SDC 11:36 → WS 15:30 → SDC 22:05
PROVIDERS: ATTEND Obstetrics & Gynecology
DX: N93.8 Other specified abnormal uterine and vaginal bleeding (principal); N92.0 Excessive and frequent menstruation with regular cycle; N94.6 Dysmenorrhea, unspecified; N80.3 Endometriosis of pelvic peritoneum; K38.0 Hyperplasia of appendix; N83.02 Follicular cyst of left ovary
CPT/HCPCS: 86850; 86900; 86901; 88302; 88307; 94664